=== PATIENT | female | born 1945 | race Caucasian/White ===

== ENCOUNTER 2018-12-17 18:39 | Emergency (ER) | payer MEDICARE, OTHER ==
[2018-12-17] MEDS ORDERED: Sodium Chloride 0.9% 1000 ML 1,000 ML IV STA (19:14)
--- NOTE | 2018-12-17 19:21 | ERPHSYRPT ---
- History of Present Illness Time Seen by Provider: 12/17/18 19:10 Source: patient Exam Limitations: no limitations Physician History: L knee replacement 3 weeks ago - doing PT as scheduled; home health nurse sees - PT c/o weakness - no energy - no appetite - forcing herself to eat and drink. Had bloodwork done here yesterday. Timing/Duration: day(s) (5) Severity: moderate Modifying Factors: Improves With: nothing Associated Symptoms: No nausea, No vomiting, No abdominal pain, No shortness of breath, No heartburn, No diaphoresis, No cough, No chills, No chest pain Allergies/Adverse Reactions: Penicillins Allergy (Verified 12/17/18 19:13) Sulfa (Sulfonamide Antibiotics) Allergy (Verified 12/17/18 19:13) Home Medications: Amlodipine Besylate 5 mg [Norvasc 5 mg] 5 mg PO DAILY 12/17/18 [History] Calcium Carbonate/Vitamin D3 [Calcium 600 + Vit D Tablet] 1 each PO DAILY [History] Estradiol 0.5 mg PO DAILY 12/17/18 [History] Irbesartan 300 mg PO DAILY 12/17/18 [History] Levothyroxine Sodium 150 Mcg [Synthroid 150 Mcg] 150 mcg PO DAILY 12/17/18 [History] Multivit-Min/Iron/Folic/Lutein [Centrum Silver Women Tablet] 1 each PO DAILY 12/28 [History] hydroCHLOROthiazide [Hydrochlorothiazide] 12.5 mg PO DAILY 12/17/18 [History] - Review of Systems Constitutional: Fatigue (weakness), Lethargy Eyes: No Symptoms Ears, Nose, & Throat: No Symptoms Respiratory: No Symptoms, No Cough, No Dyspnea, No Dyspnea on Exertion (BYERS), No Stridor, No Wheezing Cardiac: No Symptoms, No Chest Pain, No Edema, No Palpitations Abdominal/Gastrointestinal: No Symptoms, No Abdominal Pain, No Nausea, No Vomiting, No Diarrhea, No Constipation Genitourinary Symptoms: No Symptoms, No Dysuria, No Frequency Skin: No Symptoms (surgical wound site with no erythema, edema - healing scar) All Other Systems: Reviewed and Negative - Nursing Vital Signs Nursing Vital Signs: Initial Vital Signs Temperature 98.1 F 12/17/18 18:50 Pulse Rate 97 H 12/17/18 18:50 Respiratory Rate 16 12/17/18 18:50 Blood Pressure 123/72 12/17/18 18:50 O2 Sat by Pulse Oximetry 96 12/17/18 18:50 Pain Scale Pain Intensity 0 - Physical Exam General Appearance: no apparent distress Eye Exam: PERRL/EOMI Ears, Nose, Throat Exam: normal ENT inspection Neck Exam: normal inspection Respiratory Exam: normal breath sounds, lungs clear, airway intact, No respiratory distress, No diminished breath sounds Cardiovascular Exam: regular rate/rhythm, normal heart sounds, No edema, No pulse deficit Gastrointestinal/Abdomen Exam: soft, normal bowel sounds, No tenderness Extremity Exam: normal inspection Neurologic Exam: alert, oriented x 3, cooperative, normal mood/affect, sensation nml, No motor deficits, No sensory deficit SpO2 Interpretation: normal O2 Delivery: Room Air Ordered Tests: Medication Summary Discontinued Medications Generic Name Dose Route Start Last Admin Trade Name Freq PRN Reason Stop Dose Admin Sodium Chloride 1,000 mls @ 999 mls/hr 12/17/18 19:14 12/17/18 19:29 Sodium Chloride 0.9% 1000 Ml IV 12/17/18 20:14 999 mls/hr .Q1H1M STA Administration Sodium Chloride Confirm 12/17/18 19:27 Sodium Chloride 0.9% 1000 Ml Administered 12/17/18 19:28 Dose 1,000 mls @ ud .ROUTE .STK-MED ONE Lab/Rad Data: Laboratory Result Diagrams 12/17/18 19:30 12/17/18 19:30 Laboratory Results 12/17/18 12/17/18 12/17/18 Range/Units 20:22 19:41 19:30 WBC (4.0-10.5) K/mm3 RBC (4.1-5.4) M/mm3 Hgb (12.0-16.0) gm/dl Hct (35-47) % MCV (78-100) fl MCH (26-32) pg MCHC (32-36) g/dl RDW (11.5-14.0) % Plt Count (150-450) K/mm3 MPV (6-9.5) fl Gran % (36.0-66.0) % Eos # (Auto) (0-0.5) Absolute Lymphs (auto) (1.0-4.6) Absolute Monos (auto) (0.0-1.3) Lymphocytes % (24.0-44.0) % Monocytes % (0.0-12.0) % Eosinophils % (0.00-5.0) % Basophils % (0.0-0.4) % Absolute Granulocytes (1.4-6.9) Basophils # (0-0.4) D-Dimer 1936 H* (215-500) ng/mL Sodium 137 (137-145) mmol/L Potassium 4.2 (3.5-5.1) mmol/L Chloride 100 (98-107) mmol/L Carbon Dioxide 27 (22-30) mmol/L Anion Gap 14.0 (5-15) MEQ/L BUN 21 H (7-17) mg/dL Creatinine 0.66 (0.52-1.04) mg/dL Estimated GFR > 60.0 ML/MIN Glucose 103 (74-106) mg/dL Calcium 9.9 (8.4-10.2) mg/dL Total Bilirubin 0.50 (0.2-1.3) mg/dL AST 22 (14-36) U/L ALT 17 (0-35) U/L Alkaline Phosphatase 87 (38-126) U/L Serum Total Protein 7.3 (6.3-8.2) g/dL Albumin 4.3 (3.5-5.0) g/dL Urine Color YELLOW (YELLOW) Urine Appearance CLEAR (CLEAR) Urine pH 7.0 (5-6) Ur Specific [place] 1.006 (1.005-1.025) Urine Protein NEGATIVE (Negative) Urine Ketones NEGATIVE (NEGATIVE) Urine Blood NEGATIVE (0-5) Pierre/ul Urine Nitrite NEGATIVE (NEGATIVE) Urine Bilirubin NEGATIVE (NEGATIVE) Urine Urobilinogen NEGATIVE (0-1) mg/dL Ur Leukocyte Esterase NEGATIVE (NEGATIVE) Urine WBC (Auto) NONE (0-5) /HPF Urine RBC (Auto) NONE (0-2) /HPF U Hyaline Cast (Auto) 0-2 (0-2) /LPF U Epithel Cells (Auto) RARE (FEW) /HPF Urine Bacteria (Auto) RARE (NEGATIVE) /HPF Urine Culture Reflexed NO (NO) Urine Glucose NEGATIVE (NEGATIVE) mg/dL 12/17/18 Range/Units 19:30 WBC 5.7 (4.0-10.5) K/mm3 RBC 3.86 L (4.1-5.4) M/mm3 Hgb 12.7 (12.0-16.0) gm/dl Hct 38.2 (35-47) % MCV 99.0 (78-100) fl MCH 32.9 H (26-32) pg MCHC 33.2 (32-36) g/dl RDW 14.3 H (11.5-14.0) % Plt Count 294 (150-450) K/mm3 MPV 10.2 H (6-9.5) fl Gran % 67.9 H (36.0-66.0) % Eos # (Auto) 0.11 (0-0.5) Absolute Lymphs (auto) 0.92 L (1.0-4.6) Absolute Monos (auto) 0.77 (0.0-1.3) Lymphocytes % 16.2 L (24.0-44.0) % Monocytes % 13.6 H (0.0-12.0) % Eosinophils % 1.9 (0.00-5.0) % Basophils % 0.4 (0.0-0.4) % Absolute Granulocytes 3.85 (1.4-6.9) Basophils # 0.02 (0-0.4) D-Dimer (215-500) ng/mL Sodium (137-145) mmol/L Potassium (3.5-5.1) mmol/L Chloride (98-107) mmol/L Carbon Dioxide (22-30) mmol/L Anion Gap (5-15) MEQ/L BUN (7-17) mg/dL Creatinine (0.52-1.04) mg/dL Estimated GFR ML/MIN Glucose (74-106) mg/dL Calcium (8.4-10.2) mg/dL Total Bilirubin (0.2-1.3) mg/dL AST (14-36) U/L ALT (0-35) U/L Alkaline Phosphatase (38-126) U/L Serum Total Protein (6.3-8.2) g/dL Albumin (3.5-5.0) g/dL Urine Color (YELLOW) Urine Appearance (CLEAR) Urine pH (5-6) Ur Specific [place] (1.005-1.025) Urine Protein (Negative) Urine Ketones (NEGATIVE) Urine Blood (0-5) Pierre/ul Urine Nitrite (NEGATIVE) Urine Bilirubin (NEGATIVE) Urine Urobilinogen (0-1) mg/dL Ur Leukocyte Esterase (NEGATIVE) Urine WBC (Auto) (0-5) /HPF Urine RBC (Auto) (0-2) /HPF U Hyaline Cast (Auto) (0-2) /LPF U Epithel Cells (Auto) (FEW) /HPF Urine Bacteria (Auto) (NEGATIVE) /HPF Urine Culture Reflexed (NO) Urine Glucose (NEGATIVE) mg/dL - Departure Departure Disposition: Home Clinical Impression: Weakness Condition: Good Referrals: [facility]VISITING NURSING [LOCATION] - Instructions: Generalized Weakness (DC) Additional Instructions: Follow up with primary care as needed. Call surgeon's office and advise of ER visit for the weakness starting last Friday and progressing thru tonight. CT scan was done and verified no PE developing; blood work does not indicate any infectious process or any electrolyte concerns.
[2018-12-17] MEDS ORDERED: Sodium Chloride 0.9% 1000 ML 1,000 ML ONE (19:27)
[2018-12-17 19:33] LABS: BASOPHIL % 0.4 % (0.0-0.4); Basophil (Absolute #) 0.02 (0-0.4); Eosinophil % 1.9 % (0.00-5.0); Eosinophil (Absolute #) 0.11 (0-0.5); Granulocyte Absolute (ANC) 3.85 (1.4-6.9); Granulocytes % 67.9 % (36.0-66.0); Hematocrit 38.2 % (35-47); Hemoglobin 12.7 gm/dl (12.0-16.0); Lymphocyte (Absolute #) 0.92 (1.0-4.6); Lymphocytes % 16.2 % (24.0-44.0); Mean Corpuscular Hemoglobin 32.9 pg (26-32); Mean Corpuscular Hgb Concent. 33.2 g/dl (32-36); Mean Platelet Volume 10.2 fl (6-9.5); Monocyte (Absolute #) 0.77 (0.0-1.3); Monocytes % 13.6 % (0.0-12.0); Platelet Count 294 K/mm3 (150-450); Red Blood Count 3.86 M/mm3 (4.1-5.4); Red Cell Distribution Width 14.3 % (11.5-14.0); White Blood Count 5.7 K/mm3 (4.0-10.5)
[2018-12-17 19:44] LABS: ALBUMIN 4.3 g/dL (3.5-5.0); ALKALINE PHOSPHATASE 87 U/L (38-126); BLOOD UREA NITROGEN 21 mg/dL (7-17); CHLORIDE 100 mmol/L (98-107); Calcium 9.9 mg/dL (8.4-10.2); Carbon Dioxide 27 mmol/L (22-30); Creatinine 1 0.66 mg/dL (0.52-1.04); Glucose 103 mg/dL (74-106); Potassium 4.2 mmol/L (3.5-5.1); SGOT/AST 22 U/L (14-36); SGPT/ALT 17 U/L (0-35); SODIUM 137 mmol/L (137-145); Total Protein 7.3 g/dL (6.3-8.2)
[2018-12-17 20:31] LABS: Appearance CLEAR (CLEAR); Bacteria RARE /HPF (NEGATIVE); Bilirubin NEGATIVE (NEGATIVE); Blood NEGATIVE Ery/ul (0-5); Epithelial Cells RARE /HPF (FEW); Glucose NEGATIVE (NEGATIVE); Hyaline Casts 0-2 /LPF (0-2); Ketones NEGATIVE (NEGATIVE); Leukocyte Esterase NEGATIVE (NEGATIVE); Nitrite NEGATIVE (NEGATIVE); Protein,Urine Dip NEGATIVE (Negative); Specific Gravity 1.006 (1.005-1.025); Urobilinogen NEGATIVE mg/dL (0-1)
[2018-12-17 22:20] VITALS: BP 112/70; PULSE 90; O2SAT 96
--- NOTE | 2018-12-18 09:08 | XRAY ---
Indication: Weakness. Elevated d-dimer. Knee surgery November 24, 2018. Multiple contiguous axial images obtained through the chest using 80 cc Isovue 370 contrast and PE protocol. Comparison: None. There is satisfactory opacification of the pulmonary arteries to include the lobar and segmental branches. No filling defect or pulmonary embolus. Heart is not enlarged. Aorta is normal in course and caliber. A few small mediastinal and right hilar calcified nodes. No pathologic mediastinal/hilar lymphadenopathy. Lungs are inflated with right upper lobe calcified granuloma. Minimal right middle lobe, lingula, and bibasilar fibrosis/scarring. No infiltrate or effusion. Bony thorax intact with mild degenerative changes throughout the spine and mild dextroscoliosis centered at T7. Limited upper abdomen including adrenal glands unremarkable. Impression: 1. Negative pulmonary embolus. No acute cardiopulmonary abnormalities. 2. Evidence for old granulomatous disease. CT DI 13.33
== END 2018-12-17 22:25 | disposition home or self-care (01) ==
LOC: ED 18:39
DX: R53.1 Weakness (principal)
CPT/HCPCS: 36000; 36415; 71260; 80053; 81001; 85025; 85379; 96360; 99284

== ENCOUNTER 2018-12-22 13:55 | Observation (INO) | payer MEDICARE, OTHER ==
[2018-12-22] MEDS ORDERED: Sodium Chloride 0.9% 10 ML FLUSH Syringe IV PRN (14:45)
--- NOTE | 2018-12-22 15:37 | XRAY ---
Indication: Weakness. Hypothyroidism. Comparison: CT chest December 17, 2018. Portable chest again demonstrates a few calcified granulomas and left base fibrosis/scarring. No focal infiltrate, consolidation, or large effusion. Heart is not enlarged. Bony thorax intact again with mild degenerative changes and mild dextroscoliosis. Impression: Stable nonacute chest with chronic features.
[2018-12-22 16:00] LABS: BASOPHIL % 0.3 % (0.0-0.4); Basophil (Absolute #) 0.02 (0-0.4); Eosinophil % 1.8 % (0.00-5.0); Eosinophil (Absolute #) 0.12 (0-0.5); Granulocyte Absolute (ANC) 4.59 (1.4-6.9); Granulocytes % 68.9 % (36.0-66.0); Hematocrit 39.5 % (35-47); Lymphocyte (Absolute #) 1.09 (1.0-4.6); Lymphocytes % 16.4 % (24.0-44.0); Mean Corpuscular Hgb Concent. 32.9 g/dl (32-36); Mean Platelet Volume 10.7 fl (6-9.5); Monocyte (Absolute #) 0.84 (0.0-1.3); Monocytes % 12.6 % (0.0-12.0); Platelet Count 269 K/mm3 (150-450); Red Blood Count 3.99 M/mm3 (4.1-5.4); Red Cell Distribution Width 14.3 % (11.5-14.0); White Blood Count 6.7 K/mm3 (4.0-10.5)
[2018-12-22 16:01] LABS: Mean Corpuscular Hemoglobin 32.5 pg (26-32)
[2018-12-22 16:05] LABS: INR 0.97 (0.8-3.0)
[2018-12-22 16:21] LABS: ALBUMIN 4.3 g/dL (3.5-5.0); ALKALINE PHOSPHATASE 92 U/L (38-126); ANION GAP 13.7 MEQ/L (5-15); BLOOD UREA NITROGEN 20 mg/dL (7-17); CHLORIDE 99 mmol/L (98-107); Calcium 10.5 mg/dL (8.4-10.2); Carbon Dioxide 26 mmol/L (22-30); Glucose 89 mg/dL (74-106); MAGNESIUM 1.9 mg/dL (1.6-2.3); SGOT/AST 23 U/L (14-36); SGPT/ALT 19 U/L (0-35); SODIUM 135 mmol/L (137-145); Total Protein 7.2 g/dL (6.3-8.2)
[2018-12-22 16:22] LABS: TROPONIN < 0.012 ng/mL (0.000-0.034)
[2018-12-22 16:25] LABS: Appearance CLEAR (CLEAR); Bacteria FEW /HPF (NEGATIVE); Bilirubin NEGATIVE (NEGATIVE); Blood NEGATIVE Ery/ul (0-5); Epithelial Cells RARE /HPF (FEW); Glucose NEGATIVE (NEGATIVE); Ketones NEGATIVE (NEGATIVE); Leukocyte Esterase NEGATIVE (NEGATIVE); Mucus SLIGHT /HPF (NEGATIVE); Nitrite NEGATIVE (NEGATIVE); Protein,Urine Dip NEGATIVE (Negative); Urobilinogen NEGATIVE mg/dL (0-1)
--- NOTE | 2018-12-22 16:35 | XRAY ---
Indication: Hypothyroidism. Two-dimensional thyroid sonogram performed. Comparison: None No thyromegaly. Right lobe measures 2.5 x 1.3 x 0.8 cm and the left lobe measures 2.2 x 0.7 x 0.5 cm with normal color perfusion. Isthmus measures 1.7 mm. No focal solid/cystic mass. Impression: Negative thyroid sonogram.
[2018-12-22] MEDS: MOTRIN 600 MG PO PRN (17:36)
[2018-12-22] MEDS ORDERED: Toprol-Xl 25MG Tablets PO ONE (17:45)
--- NOTE | 2018-12-22 21:14 | PCM.HP ---
History of Present Illness - Chief Complaint Chief Complaint: tachy,weakness,hypothyroid,bruising History of Present Illness: is a 73 year old female pt of mine from [facility] with hypothyroidism and recent total knee arthroplasty who was directly admitted to the hospital for weakness and tachycardia. She came to see me yesterday in the office about 4 weeks post surgery, c/o 1 week of dizziness, weakness, and shakiness. She had some pre-surgery jitters but then was feeling fine for the first 3 weeks after surgery. When she started feeling dizzy and shaky she went to ER, where they did rule out a PE with a negative CTA of the chest. She denies CP, SOB, and palpitations. She has said she feels "not right" and described it as like being in a car wreck when there's too much adrenaline. Her surgeon was Dr. Givens at [facility]. Surgery was on 11/24/18. Her initial labs showed normal TSH and elevated free T4. Today she started feeling more shaky and decided she had to do something else, so she called my office and left a message that she thought maybe she needed to be admitted. I did admit her directly; on telemetry her HR is mostly in the 90s , occasionally in the 80s, but when she sat up to bedside her HR was almost 120. I gave her Toprol XL 25mg and she says she does feel better than in office yesterday and definitely better than earlier today. - Review of Systems Constitutional: Weakness Neurological: Dizziness, Other (shakiness) Psychological: Anxiety Endocrine: Other ("hot feet") All Other Systems: Reviewed and Negative Medications & Allergies Home Medications: Home Medication List Amlodipine Besylate 5 mg [Norvasc 5 mg] 5 mg PO DAILY 12/17/18 [History Confirmed 12/22/18] Calcium Carbonate/Vitamin D3 [Calcium 600 + Vit D Tablet] 1 each PO DAILY [History Confirmed 12/22/18] Estradiol 0.5 mg PO DAILY 12/17/18 [History Confirmed 12/22/18] Irbesartan 300 mg PO DAILY 12/17/18 [History Confirmed 12/22/18] Levothyroxine Sodium 150 Mcg [Synthroid 150 Mcg] 150 mcg PO DAILY 12/17/18 [History Confirmed 12/22/18] Multivit-Min/Iron/Folic/Lutein [Centrum Silver Women Tablet] 1 each PO DAILY 12/28 [History Confirmed 12/22/18] hydroCHLOROthiazide [Hydrochlorothiazide] 12.5 mg PO DAILY 12/17/18 [History Confirmed 12/22/18] Allergies/Adverse Reactions: Allergies Allergy/AdvReac Type Severity Reaction Status Date / Time Penicillins Allergy Verified 12/17/18 19:13 Sulfa (Sulfonamide Allergy Verified 12/17/18 19:13 Antibiotics) - Past Medical History Past Medical History: Yes Neurological History: No Pertinent History ENT History: Cataracts Cardiac History: Hypertension Respiratory History: No Pertinent History Endocrine Medical History: Hypothyroidism Musculoskelatal History: No Pertinent History GI Medical History: Hernia History: No Pertinent History Pyscho-Social History: No Pertinent History Reproductive Disorders: No Pertinent History - Female History Are you now?: No - Past Surgical History Past Surgical History: Yes Neuro Surgical History: No Pertinent History Cardiac History: No Pertinent History Respiratory Surgery: No Pertinent History GI Surgical History: Hernia Repair Genitourinary Surgical Hx: No Pertinent History Musculskeletal Surgical Hx: Joint Replacement Female Surgical History: Hysterectomy Other Surgical History: LEFT KNEE REPLACEMENT - Social History Smoking Status: Never smoker Exposure to second hand smoke: No Alcohol: None Drug Use: none - Physical Exam Vital Signs: Vital Signs - 24 hr Temp Pulse Resp BP Pulse Ox 12/22/18 19:46 98.2 F 91 H 17 135/64 93 L 12/22/18 19:18 95 12/22/18 16:10 98.2 F 92 H 20 124/59 96 12/22/18 14:45 96 12/22/18 14:31 98.0 F 82 20 126/63 97 12/22/18 14:30 98 F 82 20 126/63 97 General Appearance: no apparent distress, alert Neurologic Exam: oriented x 3, cooperative Eye Exam: eyes nml inspection Ears, Nose, Throat Exam: moist mucous membranes Neck Exam: normal inspection, non-tender, No lymphadenopathy Respiratory Exam: normal breath sounds, lungs clear, No crackles/rales, No rhonchi, No wheezing Cardiovascular Exam: regular rate/rhythm (HR 94), normal heart sounds, No murmur Gastrointestinal/Abdomen Exam: soft, normal bowel sounds, No tenderness, No distention, No mass, No guarding, No rebound Extremity Exam: other (no pretibial edema bilat) Skin Exam: normal color, warm, dry, No rash Results - Labs Lab/Micro Results: Lab Results-Last 24 Hours 12/22/18 12/22/18 12/22/18 Range/Units 14:46 14:46 14:46 WBC 6.7 (4.0-10.5) K/mm3 RBC 3.99 L (4.1-5.4) M/mm3 Hgb 13.0 (12.0-16.0) gm/dl Hct 39.5 (35-47) % MCV 99.0 (78-100) fl MCH 32.5 H (26-32) pg MCHC 32.9 (32-36) g/dl RDW 14.3 H (11.5-14.0) % Plt Count 269 (150-450) K/mm3 MPV 10.7 H (6-9.5) fl Gran % 68.9 H (36.0-66.0) % Eos # (Auto) 0.12 (0-0.5) Absolute Lymphs (auto) 1.09 (1.0-4.6) Absolute Monos (auto) 0.84 (0.0-1.3) Lymphocytes % 16.4 L (24.0-44.0) % Monocytes % 12.6 H (0.0-12.0) % Eosinophils % 1.8 (0.00-5.0) % Basophils % 0.3 (0.0-0.4) % Absolute Granulocytes 4.59 (1.4-6.9) Basophils # 0.02 (0-0.4) PT (9.95-12.35) SECONDS INR (0.8-3.0) Sodium 135 L (137-145) mmol/L Potassium 4.0 (3.5-5.1) mmol/L Chloride 99 (98-107) mmol/L Carbon Dioxide 26 (22-30) mmol/L Anion Gap 13.7 (5-15) MEQ/L BUN 20 H (7-17) mg/dL Creatinine 0.70 (0.52-1.04) mg/dL Estimated GFR > 60.0 ML/MIN Glucose 89 (74-106) mg/dL Lactic Acid 1.4 (0.4-2.0) Calcium 10.5 H (8.4-10.2) mg/dL Magnesium 1.9 (1.6-2.3) mg/dL Total Bilirubin 0.70 (0.2-1.3) mg/dL AST 23 (14-36) U/L ALT 19 (0-35) U/L Alkaline Phosphatase 92 (38-126) U/L Troponin I < 0.012 (0.000-0.034) ng/mL Serum Total Protein 7.2 (6.3-8.2) g/dL Albumin 4.3 (3.5-5.0) g/dL TSH 3rd Generation (0.47-4.68) mIU/L Urine Color (YELLOW) Urine Appearance (CLEAR) Urine pH (5-6) Ur Specific [place] (1.005-1.025) Urine Protein (Negative) Urine Ketones (NEGATIVE) Urine Blood (0-5) Pierre/ul Urine Nitrite (NEGATIVE) Urine Bilirubin (NEGATIVE) Urine Urobilinogen (0-1) mg/dL Ur Leukocyte Esterase (NEGATIVE) Urine WBC (Auto) (0-5) /HPF Urine RBC (Auto) (0-2) /HPF U Epithel Cells (Auto) (FEW) /HPF Urine Bacteria (Auto) (NEGATIVE) /HPF Urine Mucus (Auto) (NEGATIVE) /HPF Urine Culture Reflexed (NO) Urine Glucose (NEGATIVE) mg/dL 12/22/18 12/22/18 12/22/18 Range/Units 14:46 14:46 16:00 WBC (4.0-10.5) K/mm3 RBC (4.1-5.4) M/mm3 Hgb (12.0-16.0) gm/dl Hct (35-47) % MCV (78-100) fl MCH (26-32) pg MCHC (32-36) g/dl RDW (11.5-14.0) % Plt Count (150-450) K/mm3 MPV (6-9.5) fl Gran % (36.0-66.0) % Eos # (Auto) (0-0.5) Absolute Lymphs (auto) (1.0-4.6) Absolute Monos (auto) (0.0-1.3) Lymphocytes % (24.0-44.0) % Monocytes % (0.0-12.0) % Eosinophils % (0.00-5.0) % Basophils % (0.0-0.4) % Absolute Granulocytes (1.4-6.9) Basophils # (0-0.4) PT 11.0 (9.95-12.35) SECONDS INR 0.97 (0.8-3.0) Sodium (137-145) mmol/L Potassium (3.5-5.1) mmol/L Chloride (98-107) mmol/L Carbon Dioxide (22-30) mmol/L Anion Gap (5-15) MEQ/L BUN (7-17) mg/dL Creatinine (0.52-1.04) mg/dL Estimated GFR ML/MIN Glucose (74-106) mg/dL Lactic Acid (0.4-2.0) Calcium (8.4-10.2) mg/dL Magnesium (1.6-2.3) mg/dL Total Bilirubin (0.2-1.3) mg/dL AST (14-36) U/L ALT (0-35) U/L Alkaline Phosphatase (38-126) U/L Troponin I (0.000-0.034) ng/mL Serum Total Protein (6.3-8.2) g/dL Albumin (3.5-5.0) g/dL TSH 3rd Generation 2.920 (0.47-4.68) mIU/L Urine Color YELLOW (YELLOW) Urine Appearance CLEAR (CLEAR) Urine pH 7.0 (5-6) Ur Specific [place] 1.010 (1.005-1.025) Urine Protein NEGATIVE (Negative) Urine Ketones NEGATIVE (NEGATIVE) Urine Blood NEGATIVE (0-5) Pierre/ul Urine Nitrite NEGATIVE (NEGATIVE) Urine Bilirubin NEGATIVE (NEGATIVE) Urine Urobilinogen NEGATIVE (0-1) mg/dL Ur Leukocyte Esterase NEGATIVE (NEGATIVE) Urine WBC (Auto) NONE (0-5) /HPF Urine RBC (Auto) NONE (0-2) /HPF U Epithel Cells (Auto) RARE (FEW) /HPF Urine Bacteria (Auto) FEW (NEGATIVE) /HPF Urine Mucus (Auto) SLIGHT (NEGATIVE) /HPF Urine Culture Reflexed ORDERED SEPARATELY (NO) Urine Glucose NEGATIVE (NEGATIVE) mg/dL - Radiology Impressions Radiology Exams & Impressions: Radiology Procedures Category Date Time Status CHEST 2 VIEWS (PA AND LAT) Routine Exams 12/22/18 14:45 Completed THYROID [US] Routine Exams 12/22/18 14:45 Completed - Other Procedures and Tests Respiratory Therapy 12/22/18 14:45 Oxygen Nasal Cannula 2 lpm Assessment/Plan (1) Hyperthyroidism Current Visit: Yes Status: Acute Assessment & Plan: acute, on chronic hypothyroidism. She is feeling b karina after a small dose of toprol. Will start 25mg metoprolol tartrate BID tonight. Total T3 pending. Thyroid u/s pending. Thyroid antibodies pending. I am holding her synthroid for now. Code(s): E05.90 - THYROTOXICOSIS, UNSP WITHOUT THYROTOXIC CRISIS OR STORM (2) Hypothyroid Current Visit: Yes Status: Chronic Qualifiers: Hypothyroidism type: unspecified Qualified Code(s): E03.9 - Hypothyroidism , unspecified Code(s): E03.9 - HYPOTHYROIDISM, UNSPECIFIED (3) Dizziness Current Visit: Yes Status: Acute Assessment & Plan: better Code(s): R42 - DIZZINESS AND GIDDINESS (4) Tachycardia Current Visit: Yes Status: Acute Assessment & Plan: worse with any activity Code(s): R00.0 - TACHYCARDIA, UNSPECIFIED (5) Hypercalcemia Current Visit: Yes Status: Acute Code(s): E83.52 - HYPERCALCEMIA (6) Weakness Current Visit: No Status: Acute Code(s): R53.1 - WEAKNESS
[2018-12-22] MEDS: Lopressor 25MG Tab PO SCH (22:00)
[2018-12-22] MEDS ORDERED: Sodium Chloride 0.9% 10 ML FLUSH Syringe IV SCH (22:00)
[2018-12-23] MEDS ORDERED: Ativan 0.5 MG PO PRN (08:41)
--- NOTE | 2018-12-23 08:46 | PCM.NOTE ---
Date and Time: 12/23/18841 Subjective Assessment: Pt slept but poorly, waking every hour. She is feeling anxious and a little more shaky this morning. Feeling lightheaded. Still feeling better than when she was in the office 2d ago. - Review of Systems Constitutional: No Fever Abdominal/Gastrointestinal: No Vomiting Objective Exam General Appearance: no apparent distress, alert Neurologic Exam: cooperative, normal mood/affect Skin Exam: normal color, warm, dry, No rash Respiratory Exam: normal breath sounds, lungs clear, No crackles/rales, No rhonchi, No wheezing Cardiovascular Exam: regular rate/rhythm, normal heart sounds, No murmur Gastrointestinal/Abdomen Exam: soft, normal bowel sounds, No distention Extremity Exam: other (L knee with well healing wound, c/d/i, no erythema) OBJECTIVE DATA Vital Signs: Vital Signs - 24 hr Temp Pulse Resp BP Pulse Ox 12/23/18 07:14 94 L 12/23/18 03:10 98 F 71 18 104/59 98 12/23/18 03:09 98 F 71 18 104/59 98 12/23/18 00:00 98.1 F 70 20 94/51 93 L 12/22/18 19:46 98.2 F 91 H 17 135/64 93 L 12/22/18 19:18 95 12/22/18 16:10 98.2 F 92 H 20 124/59 96 12/22/18 14:45 96 12/22/18 14:31 98.0 F 82 20 126/63 97 12/22/18 14:30 98 F 82 20 126/63 97 Pain Assessment - Last Documented Pain Intensity 0 Pain Scale Used 0-10 Pain Scale Intake and Output: Intake & Output 12/20/18 12/21/18 12/22/18 12/23/18 11:59 11:59 11:59 11:59 Intake Total 600 Output Total 1400 Balance -800 Weight 68.5 kg Lab Results: Lab Results-Last 24 Hours 12/22/18 12/22/18 12/22/18 Range/Units 14:46 14:46 14:46 WBC 6.7 (4.0-10.5) K/mm3 RBC 3.99 L (4.1-5.4) M/mm3 Hgb 13.0 (12.0-16.0) gm/dl Hct 39.5 (35-47) % MCV 99.0 (78-100) fl MCH 32.5 H (26-32) pg MCHC 32.9 (32-36) g/dl RDW 14.3 H (11.5-14.0) % Plt Count 269 (150-450) K/mm3 MPV 10.7 H (6-9.5) fl Gran % 68.9 H (36.0-66.0) % Eos # (Auto) 0.12 (0-0.5) Absolute Lymphs (auto) 1.09 (1.0-4.6) Absolute Monos (auto) 0.84 (0.0-1.3) Lymphocytes % 16.4 L (24.0-44.0) % Monocytes % 12.6 H (0.0-12.0) % Eosinophils % 1.8 (0.00-5.0) % Basophils % 0.3 (0.0-0.4) % Absolute Granulocytes 4.59 (1.4-6.9) Basophils # 0.02 (0-0.4) PT (9.95-12.35) SECONDS INR (0.8-3.0) Sodium 135 L (137-145) mmol/L Potassium 4.0 (3.5-5.1) mmol/L Chloride 99 (98-107) mmol/L Carbon Dioxide 26 (22-30) mmol/L Anion Gap 13.7 (5-15) MEQ/L BUN 20 H (7-17) mg/dL Creatinine 0.70 (0.52-1.04) mg/dL Estimated GFR > 60.0 ML/MIN Glucose 89 (74-106) mg/dL Lactic Acid 1.4 (0.4-2.0) Calcium 10.5 H (8.4-10.2) mg/dL Magnesium 1.9 (1.6-2.3) mg/dL Total Bilirubin 0.70 (0.2-1.3) mg/dL AST 23 (14-36) U/L ALT 19 (0-35) U/L Alkaline Phosphatase 92 (38-126) U/L Troponin I < 0.012 (0.000-0.034) ng/mL Serum Total Protein 7.2 (6.3-8.2) g/dL Albumin 4.3 (3.5-5.0) g/dL TSH 3rd Generation (0.47-4.68) mIU/L Urine Color (YELLOW) Urine Appearance (CLEAR) Urine pH (5-6) Ur Specific [place] (1.005-1.025) Urine Protein (Negative) Urine Ketones (NEGATIVE) Urine Blood (0-5) Pierre/ul Urine Nitrite (NEGATIVE) Urine Bilirubin (NEGATIVE) Urine Urobilinogen (0-1) mg/dL Ur Leukocyte Esterase (NEGATIVE) Urine WBC (Auto) (0-5) /HPF Urine RBC (Auto) (0-2) /HPF U Epithel Cells (Auto) (FEW) /HPF Urine Bacteria (Auto) (NEGATIVE) /HPF Urine Mucus (Auto) (NEGATIVE) /HPF Urine Culture Reflexed (NO) Urine Glucose (NEGATIVE) mg/dL 12/22/18 12/22/18 12/22/18 Range/Units 14:46 14:46 16:00 WBC (4.0-10.5) K/mm3 RBC (4.1-5.4) M/mm3 Hgb (12.0-16.0) gm/dl Hct (35-47) % MCV (78-100) fl MCH (26-32) pg MCHC (32-36) g/dl RDW (11.5-14.0) % Plt Count (150-450) K/mm3 MPV (6-9.5) fl Gran % (36.0-66.0) % Eos # (Auto) (0-0.5) Absolute Lymphs (auto) (1.0-4.6) Absolute Monos (auto) (0.0-1.3) Lymphocytes % (24.0-44.0) % Monocytes % (0.0-12.0) % Eosinophils % (0.00-5.0) % Basophils % (0.0-0.4) % Absolute Granulocytes (1.4-6.9) Basophils # (0-0.4) PT 11.0 (9.95-12.35) SECONDS INR 0.97 (0.8-3.0) Sodium (137-145) mmol/L Potassium (3.5-5.1) mmol/L Chloride (98-107) mmol/L Carbon Dioxide (22-30) mmol/L Anion Gap (5-15) MEQ/L BUN (7-17) mg/dL Creatinine (0.52-1.04) mg/dL Estimated GFR ML/MIN Glucose (74-106) mg/dL Lactic Acid (0.4-2.0) Calcium (8.4-10.2) mg/dL Magnesium (1.6-2.3) mg/dL Total Bilirubin (0.2-1.3) mg/dL AST (14-36) U/L ALT (0-35) U/L Alkaline Phosphatase (38-126) U/L Troponin I (0.000-0.034) ng/mL Serum Total Protein (6.3-8.2) g/dL Albumin (3.5-5.0) g/dL TSH 3rd Generation 2.920 (0.47-4.68) mIU/L Urine Color YELLOW (YELLOW) Urine Appearance CLEAR (CLEAR) Urine pH 7.0 (5-6) Ur Specific [place] 1.010 (1.005-1.025) Urine Protein NEGATIVE (Negative) Urine Ketones NEGATIVE (NEGATIVE) Urine Blood NEGATIVE (0-5) Pierre/ul Urine Nitrite NEGATIVE (NEGATIVE) Urine Bilirubin NEGATIVE (NEGATIVE) Urine Urobilinogen NEGATIVE (0-1) mg/dL Ur Leukocyte Esterase NEGATIVE (NEGATIVE) Urine WBC (Auto) NONE (0-5) /HPF Urine RBC (Auto) NONE (0-2) /HPF U Epithel Cells (Auto) RARE (FEW) /HPF Urine Bacteria (Auto) FEW (NEGATIVE) /HPF Urine Mucus (Auto) SLIGHT (NEGATIVE) /HPF Urine Culture Reflexed ORDERED SEPARATELY (NO) Urine Glucose NEGATIVE (NEGATIVE) mg/dL Radiology Exams: Radiology Procedures Category Date Time Status CHEST 2 VIEWS (PA AND LAT) Routine Exams 12/22/18 14:45 Completed THYROID [US] Routine Exams 12/22/18 14:45 Completed Assessment/Plan (1) Hyperthyroidism Current Visit: Yes Status: Acute Assessment & Plan: Total T3 and TPO antibodies are send out labs, will be done in 3-5 days. I am resuming her synthroid at a lower dose. Code(s): E05.90 - THYROTOXICOSIS, UNSP WITHOUT THYROTOXIC CRISIS OR STORM (2) Hypothyroid Current Visit: Yes Status: Chronic Qualifiers: Hypothyroidism type: unspecified Qualified Code(s): E03.9 - Hypothyroidism , unspecified Code(s): E03.9 - HYPOTHYROIDISM, UNSPECIFIED (3) Dizziness Current Visit: Yes Status: Acute Assessment & Plan: some of this morning's dizziness may be due to the meds we started here - toprol - causing her bp to be 104 systolic. Will continue with toprol 25mg po BID (she did also get a dose of toprol XL 25 mg yesterday but I will not be continuing that). Code(s): R42 - DIZZINESS AND GIDDINESS (4) Tachycardia Current Visit: Yes Status: Resolved Code(s): R00.0 - TACHYCARDIA, UNSPECIFIED (5) Hypercalcemia Current Visit: Yes Status: Acute Code(s): E83.52 - HYPERCALCEMIA (6) Weakness Current Visit: No Status: Acute Code(s): R53.1 - WEAKNESS (7) Anxiety Current Visit: Yes Status: Acute Assessment & Plan: appears to be acute on chronic. Start buspar. Ativan prn, but I did discuss some side effects of ativan including increased risk of falls and addictive nature. If she feels better with meds may be able to d/c to home tomorrow to await other lab tests. Code(s): F41.9 - ANXIETY DISORDER, UNSPECIFIED
[2018-12-23] MEDS: Avapro 150 MG PO SCH (09:47)
[2018-12-23] MEDS: BUSPAR 5 MG PO SCH ×2 (09:47→21:11)
[2018-12-23] MEDS: SYNTHROID 125 MCG PO SCH (09:48)
[2018-12-23] MEDS: hydroDIURIL 25 MG PO SCH (09:48)
[2018-12-23] MEDS: ESTRACE 1 MG PO SCH (09:48)
[2018-12-23] MEDS: Lopressor 25MG Tab PO SCH ×2 (09:48→22:30)
[2018-12-23] MEDS: MOTRIN 600 MG PO PRN ×2 (09:55→17:14)
[2018-12-23] MEDS ORDERED: NORVASC 5 MG PO SCH (10:00)
[2018-12-23] MEDS ORDERED: NON-FORMULARY ITEM (Hydrochlorothiazide [Hydrochlorothiazide] 12.5 MG) PO SCH (10:00)
[2018-12-23] MEDS ORDERED: CLARITIN 10 MG PO SCH (22:00)
[2018-12-24 06:40] VITALS: BP 103/55; PULSE 77; O2SAT 98
--- NOTE | 2018-12-24 08:53 | PCM.DS ---
Discharge Summary Date of Admission: 12/22/18 14:11 Admitting Physician: RIAN CHESTER Primary Care Provider: RIAN CHESTER Allergies Allergies Penicillins Allergy (Verified 12/17/18 19:13) Sulfa (Sulfonamide Antibiotics) Allergy (Verified 12/17/18 19:13) Hospital Summary - Hospital Course Hospital Course: Pt is a 73 yo female pt, new to in, with hypothyroidism who was directly admitted feeling shaky and jittery with tachycardia. She had total knee replacement on the L 1 month ago, but c/o 1 week of symptoms. Her TSH was nl but free T4 was elevated. She was started on po metoprolol, buspar, and ativan prn and is feeling much better. She will be discharged to home on these meds ( will stop her amlodipine as bp have decreased). Decreased synthroid from 150mcg to 137 mcg/d. total T3 is pending. PTH is nl. PTO antibodies pending. F/u with me in 1 week - Vitals & Intake/Output Vital Signs: Vital Signs Temperature 98.1 F 12/24/18 06:40 Pulse Rate 77 12/24/18 06:40 Respiratory Rate 16 12/24/18 06:40 Blood Pressure 103/55 12/24/18 06:40 O2 Sat by Pulse Oximetry 98 12/24/18 06:40 Intake & Output: Intake & Output 12/21/18 12/22/18 12/23/18 12/24/18 11:59 11:59 11:59 11:59 Intake Total 1080 2380 Output Total 2050 1600 Balance -970 780 Weight 68.5 kg - Lab Result Diagrams: 12/22/18 14:46 12/22/18 14:46 Lab Results-Last 24 Hrs: Lab Results-Last 24 Hours 12/22/18 Range/Units 05:25 PTH Intact 32 (15-72) pg/mL Micro Results-Entire Visit: Microbiology 12/22/18 16:00 Urine Culture - Final Urine, Void <10K NORMAL SKIN JAKE PROBABLE SKIN CONTAMINANT - Radiology Exams Ordered Rad Exams-Entire Visit: Radiology Procedures Category Date Time Status CHEST 2 VIEWS (PA AND LAT) Routine Exams 12/22/18 14:45 Completed THYROID [US] Routine Exams 12/22/18 14:45 Completed - Procedures and Test Procedures and Tests throughout Hospitalization: Therapy Orders & Screens 12/22/18 14:45 EKG ROUTINE Comment: Diagnosis: tachy,weakness,hypothyroid,bruising Oxygen Nasal Cannula 2 lpm Comment: Diagnosis: tachy,weakness,hypothyroid,bruising 12/23/18 10:13 PT Eval & Treat ( Order) ROUTINE Reason for Eval:: L Knee replacement Diagnosis: tachy,weakness,hypothyroid,bruising Discharge Exam General Appearance: no apparent distress, alert Neurologic Exam: oriented x 3, cooperative Eye Exam: eyes nml inspection Respiratory Exam: normal breath sounds, lungs clear, No crackles/rales, No rhonchi, No wheezing Cardiovascular Exam: regular rate/rhythm, normal heart sounds, murmur Back Exam: normal inspection, No rash Extremity Exam: normal inspection, No pedal edema, No swelling Skin Exam: normal color, warm, dry, No rash Final Diagnosis/Problem List - Final Discharge Diagnosis/Problem (1) Hyperthyroidism Current Visit: Yes Status: Acute Assessment & Plan: started after her knee replacement. some labs still pending - she will f/u with me in 1 week about those. She will see endocrinology as well. Decreased synthroid at home and recheck in 2 mo. Code(s): E05.90 - THYROTOXICOSIS, UNSP WITHOUT THYROTOXIC CRISIS OR STORM (2) Hypothyroid Current Visit: Yes Status: Chronic Code(s): E03.9 - HYPOTHYROIDISM, UNSPECIFIED (3) Dizziness Current Visit: Yes Status: Resolved Code(s): R42 - DIZZINESS AND GIDDINESS (4) Tachycardia Current Visit: Yes Status: Resolved Assessment & Plan: on toprol 25mg po BID Code(s): R00.0 - TACHYCARDIA, UNSPECIFIED (5) Hypercalcemia Current Visit: Yes Status: Acute Assessment & Plan: PTH is nl Code(s): E83.52 - HYPERCALCEMIA (6) Weakness Current Visit: No Status: Resolved Code(s): R53.1 - WEAKNESS (7) Anxiety Current Visit: Yes Status: Chronic Assessment & Plan: improved. ativan prn, advised don't take it daily. Code(s): F41.9 - ANXIETY DISORDER, UNSPECIFIED - Discharge Disposition: Home, Self-Care Condition: Good Prescriptions: New Lorazepam 0.5 mg [Ativan 0.5 MG] 0.5 mg PO QHS PRN #30 tablet PRN Reason: Anxiety Buspirone HCl 5 mg [Buspar 5 mg] 5 mg PO BID #60 tablet Loratadine 10 mg [Claritin 10 mg] 10 mg PO HS tablet Levothyroxine Sodium 137 mcg PO DAILY #30 tablet Metoprolol Tartrate 25 mg [Lopressor 25MG Tab] 25 mg PO BID #60 tab Continue hydroCHLOROthiazide [Hydrochlorothiazide] 12.5 mg PO DAILY Multivit-Min/Iron/Folic/Lutein [Centrum Silver Women Tablet] 1 each PO DAILY Irbesartan 300 mg PO DAILY Estradiol 0.5 mg PO DAILY Calcium Carbonate/Vitamin D3 [Calcium 600 + Vit D Tablet] 1 each PO DAILY Discontinued Amlodipine Besylate 5 mg [Norvasc 5 mg] 5 mg PO DAILY Levothyroxine Sodium 150 Mcg [Synthroid 150 Mcg] 150 mcg PO DAILY Follow up with: RIAN CHESTER [Primary Care Provider] - 01/01/19 11:15 am
[2018-12-24] MEDS: Lopressor 25MG Tab PO SCH (08:58)
[2018-12-24] MEDS: BUSPAR 5 MG PO SCH (08:58)
[2018-12-24] MEDS: SYNTHROID 125 MCG PO SCH (08:58)
[2018-12-24] MEDS: hydroDIURIL 25 MG PO SCH (08:59)
[2018-12-24] MEDS: Avapro 150 MG PO SCH (09:01)
[2018-12-24] MEDS: ESTRACE 1 MG PO SCH (09:02)
== END 2018-12-24 10:55 | disposition home or self-care (01) ==
LOC: MED SURG 14:11
PROVIDERS: ADMIT Family Medicine; ATTEND Family Medicine
DX: E05.90 Thyrotoxicosis, unspecified without thyrotoxic crisis or storm (principal); R42 Dizziness and giddiness; R00.0 Tachycardia, unspecified; E03.9 Hypothyroidism, unspecified; E83.52 Hypercalcemia; R53.1 Weakness; F41.9 Anxiety disorder, unspecified; Z79.899 Other long term (current) drug therapy; Z96.652 Presence of left artificial knee joint
CPT/HCPCS: 36415; 71046; 76536; 80053; 81001; 83605; 83735; 83970; 84443; 84480; 84484; 85025; 85610; 86376; 87086; 93005; 93268; 94760; 97162; 97530; G0378; A9270-GY

== ENCOUNTER 2020-12-02 11:33 | Emergency (ER) | payer MEDICARE, OTHER ==
[2020-12-02] MEDS ORDERED: Ativan 2 MG/1 ML VIAL IV ONE (12:02)
[2020-12-02] MEDS ORDERED: Sodium Chloride 0.9% 1000 ML 1,000 ML IV STA (12:02)
[2020-12-02 12:39] LABS: Absolute Neutrophil Ct (ANC) 6.91 (1.4-6.9); BASOPHIL % 0.2 % (0.0-0.4); Basophil (Absolute #) 0.02 (0-0.4); Eosinophil % 0.4 % (0.00-5.0); Eosinophil (Absolute #) 0.03 (0-0.5); Hematocrit 42.5 % (35-47); Hemoglobin 13.8 gm/dl (12.0-16.0); Lymphocyte (Absolute #) 0.68 (1.0-4.6); Lymphocytes % 8.1 % (24.0-44.0); Mean Cell Volume 98.2 fl (78-100); Mean Corpuscular Hemoglobin 31.9 pg (26-32); Mean Corpuscular Hgb Concent. 32.5 g/dl (32-36); Mean Platelet Volume 11.2 fl (7.5-11.0); Monocytes % 9.5 % (0.0-12.0); Neutrophil % 81.8 % (36.0-66.0); Platelet Count 208 K/mm3 (150-450); Red Blood Count 4.33 M/mm3 (4.1-5.4); Red Cell Distribution Width 13.1 % (11.5-14.0); White Blood Count 8.4 K/mm3 (4.0-10.5)
[2020-12-02] MEDS ORDERED: Ativan 2 MG/1 ML VIAL ONE (12:43)
[2020-12-02] MEDS ORDERED: Sodium Chloride 0.9% 1000 ML 1,000 ML ONE (12:44)
[2020-12-02 12:52] LABS: INR 0.96 (0.8-3.0); PROTIME 11.3 SECONDS (9.4-12.5)
[2020-12-02 13:05] LABS: ALBUMIN 4.2 g/dL (3.5-5.0); ALKALINE PHOSPHATASE 84 U/L (38-126); AMYLASE 81 U/L (30-110); ANION GAP 15.4 MEQ/L (5-15); BLOOD UREA NITROGEN 23 mg/dL (7-17); CHLORIDE 102 mmol/L (98-107); CK-Creatinine Phosphokinase 28 U/L (30-135); Calcium 9.7 mg/dL (8.4-10.2); Carbon Dioxide 22 mmol/L (22-30); Creatinine 1 0.67 mg/dL (0.52-1.04); EST GLOMERULAR FILTRATION RATE > 60.0 ML/MIN; Glucose 114 mg/dL (74-106); LIPASE 215 U/L (23-300); NT PRO BNP 72.5 pg/mL (0-1800); Potassium 4.3 mmol/L (3.5-5.1); SGOT/AST 30 U/L (14-36); SGPT/ALT 19 U/L (0-35); SODIUM 135 mmol/L (137-145); Total Protein 7.1 g/dL (6.3-8.2)
[2020-12-02 13:41] LABS: Appearance CLEAR (CLEAR); Bilirubin NEGATIVE (NEGATIVE); Blood NEGATIVE Ery/ul (0-5); Glucose NEGATIVE (NEGATIVE); Ketones NEGATIVE (NEGATIVE); Leukocyte Esterase NEGATIVE (NEGATIVE); Nitrite NEGATIVE (NEGATIVE); Protein,Urine Dip NEGATIVE (Negative); Specific Gravity 1.009 (1.005-1.025); Urobilinogen NEGATIVE mg/dL (0-1); WBC 0-2 /HPF (0-5)
[2020-12-02 14:05] VITALS: O2SAT 98
[2020-12-02 15:19] VITALS: BP 141/67; PULSE 64
--- NOTE | 2020-12-02 15:21 | ERPHSYRPT ---
- History of Present Illness Time Seen by Provider: 12/02/20 11:50 Source: patient Patient Subjective Stated Complaint: c/o of nausea, unable to eat or drink, decreased appetite, weak, shaky and unable to sleep, pt reports having extreme anxiety Triage Nursing Assessment: Pt brought to the ER by her daughter, hypertensive, denies pain, lethargic, weak, pt was told by 1 doctor to increase her Synthroid and her poly packer and heat sealer had her stop it for 3 days and go from 125mcg to 112mcg, pt has been off of it for 2 days, skin n/w/d, pulses normal, doesn't appear to be in any distress Physician History: 75-year-old white female who says she is not been feeling well for several days. She has had multiple changes to her medicines in a relatively short period of time. She does have a lab result showing an elevated TSH and she says that her she was told to hold her Synthroid for a while. She also had changes to her blood pressure medicine. She is very anxious and recognizes that. She has been dizzy weak she thinks she may be a little dehydrated she has had nausea and decreased appetite. Timing/Duration: worse Severity: moderate Modifying Factors: Improves With: medication Associated Symptoms: nausea, loss of appetite, weakness, other (Dizzy) Allergies/Adverse Reactions: Penicillins Allergy (Verified 12/02/20 11:51) Sulfa (Sulfonamide Antibiotics) Allergy (Verified 12/02/20 11:51) Home Medications: Irbesartan 150 mg PO DAILY 12/17/18 [History] Multivit-Min/Iron/Folic/Lutein [Centrum Silver Women Tablet] 1 each PO DAILY 12/17/18 [History] Levothyroxine Sodium 112 mcg PO DAILY 12/02/20 [History] Hx Tetanus, Diphtheria Vaccination/Date Given: No Hx Influenza Vaccination/Date Given: Yes Hx Pneumococcal Vaccination/Date Given: Yes Travel Risk - International Travel Have you traveled outside of the country in past 3 weeks: No - Coronavirus Screening Are you exhibiting any of the following symptoms?: No Close contact with a COVID-19 positive Pt in past 14-21 Days: No - Vaccine Status Have you recieved a Covid-19 vaccination: Yes Nodulizer: [employer] - Review of Systems Constitutional: Fatigue, Weakness Eyes: No Symptoms Ears, Nose, & Throat: No Symptoms Respiratory: No Cough, No Dyspnea Cardiac: No Chest Pain, No Edema, No Syncope Abdominal/Gastrointestinal: Appetite Changes, No Abdominal Pain, No Nausea, No Vomiting, No Diarrhea Genitourinary Symptoms: No Dysuria Musculoskeletal: No Back Pain, No Neck Pain Skin: No Rash Neurological: Dizziness Psychological: Anxiety Endocrine: No Symptoms Hematologic/Lymphatic: No Symptoms Immunological/Allergic: No Symptoms All Other Systems: Reviewed and Negative - Past Medical History Pertinent Past Medical History: Yes Neurological History: No Pertinent History ENT History: Cataracts Cardiac History: Hypertension Respiratory History: No Pertinent History Endocrine Medical History: Hypothyroidism Musculoskeletal History: No Pertinent History GI Medical History: Hernia History: No Pertinent History Psycho-Social History: Anxiety Female Reproductive Disorders: No Pertinent History - Past Surgical History Past Surgical History: Yes Neuro Surgical History: No Pertinent History Cardiac: No Pertinent History Respiratory: No Pertinent History Gastrointestinal: Hernia Repair Genitourinary: No Pertinent History Musculoskeletal: Joint Replacement Female Surgical History: Hysterectomy Other Surgical History: LEFT KNEE REPLACEMENT - Social History Smoking Status: Never smoker Exposure to second hand smoke: No Drug Use: none Patient Lives Alone: Yes - Female History Hx Now: No - Nursing Vital Signs Nursing Vital Signs: Initial Vital Signs Temperature 97.5 F 12/02/20 11:41 Pulse Rate 85 12/02/20 11:41 Blood Pressure 142/89 12/02/20 11:41 O2 Sat by Pulse Oximetry 96 12/02/20 11:41 Pain Scale Pain Intensity 0 - Physical Exam General Appearance: mild distress, alert Eye Exam: PERRL/EOMI, eyes nml inspection Ears, Nose, Throat Exam: normal ENT inspection, TMs normal, pharynx normal, moist mucous membranes Neck Exam: normal inspection, non-tender, supple, full range of motion Respiratory Exam: normal breath sounds, lungs clear, No respiratory distress Cardiovascular Exam: regular rate/rhythm, normal heart sounds, normal peripheral pulses Gastrointestinal/Abdomen Exam: soft, normal bowel sounds, No tenderness, No mass Back Exam: normal inspection, normal range of motion, No CVA tenderness, No vertebral tenderness Extremity Exam: normal inspection, normal range of motion, pelvis stable Neurologic Exam: alert, oriented x 3, cooperative, normal mood/affect, nml cerebellar function, nml station & gait, sensation nml, No motor deficits Skin Exam: normal color, warm, dry, No rash Lymphatic Exam: No adenopathy SpO2: 98 - Course EKG Interpreted by Me: RATE (83), NORMAL AXIS, NORMAL INTERVALS, NORMAL QRS, Non-specific ST Changes - Radiology Exams Chest X-ray Interpretation: Interpreted by me, Negative Ordered Tests: Active Orders 24 hr Category Date Time Status EKG-ER Only STAT Care 12/02/20 12:02 Active IV Insertion STAT Care 12/02/20 12:02 Active CHEST 1 VIEW (PORTABLE) Stat Exams 12/02/20 12:03 Taken AMYLASE Stat Lab 12/02/20 12:22 Completed BLOOD CULTURE Stat Lab 12/02/20 12:30 Received CBC W DIFF Stat Lab 12/02/20 12:22 Completed CK-Creatinine Phosphokinase Stat Lab 12/02/20 12:22 Completed CMP Stat Lab 12/02/20 12:22 Completed LIPASE Stat Lab 12/02/20 12:22 Completed Lactic Acid Stat Lab 12/02/20 12:02 Completed MAGNESIUM Stat Lab 12/02/20 12:22 Completed NT PRO BNP Stat Lab 12/02/20 12:22 Completed PROTIME WITH INR Stat Lab 12/02/20 12:22 Completed TROPONIN Q3H Lab 12/02/20 12:22 Completed TROPONIN Q3H Lab 12/02/20 15:15 Ordered TROPONIN Q3H Lab 12/02/20 18:15 Ordered TROPONIN Q3H Lab 12/02/20 21:15 Ordered TROPONIN Q3H Lab 12/03/20 00:15 Ordered TSH [TSH, 3RD Generation] Stat Lab 12/02/20 12:22 Completed UA W/RFX UR CULTURE Stat Lab 12/02/20 12:48 Completed Medication Summary Discontinued Medications Generic Name Dose Route Start Last Admin Trade Name Freq PRN Reason Stop Dose Admin Sodium Chloride 1,000 mls @ 999 mls/hr 12/02/20 12:02 12/02/20 14:06 Sodium Chloride 0.9% 1000 Ml IV 12/02/20 13:02 Infused .Q1H1M STA Infusion Sodium Chloride Confirm 12/02/20 12:44 Sodium Chloride 0.9% 1000 Ml Administered 12/02/20 12:45 Dose 1,000 mls @ ud .ROUTE .STK-MED ONE Lorazepam 1 mg 12/02/20 12:02 12/02/20 12:45 Ativan 2 Mg/1 Ml Vial IV 12/02/20 12:03 1 mg STAT ONE Administration Lorazepam Confirm 12/02/20 12:43 Ativan 2 Mg/1 Ml Vial Administered 12/02/20 12:44 Dose 2 mg .ROUTE .STK-MED ONE Lab/Rad Data: Laboratory Result Diagrams 12/02/20 12:22 12/02/20 12:22 Laboratory Results 12/02/20 12/02/20 12/02/20 Range/Units 12:48 12:22 12:22 WBC (4.0-10.5) K/mm3 RBC (4.1-5.4) M/mm3 Hgb (12.0-16.0) gm/dl Hct (35-47) % MCV (78-100) fl MCH (26-32) pg MCHC (32-36) g/dl RDW (11.5-14.0) % Plt Count (150-450) K/mm3 MPV (7.5-11.0) fl Gran % (36.0-66.0) % Eos # (Auto) (0-0.5) Absolute Lymphs (auto) (1.0-4.6) Absolute Monos (auto) (0.0-1.3) Lymphocytes % (24.0-44.0) % Monocytes % (0.0-12.0) % Eosinophils % (0.00-5.0) % Basophils % (0.0-0.4) % Absolute Granulocytes (1.4-6.9) Basophils # (0-0.4) PT (9.4-12.5) SECONDS INR (0.8-3.0) Sodium (137-145) mmol/L Potassium (3.5-5.1) mmol/L Chloride (98-107) mmol/L Carbon Dioxide (22-30) mmol/L Anion Gap (5-15) MEQ/L BUN (7-17) mg/dL Creatinine (0.52-1.04) mg/dL Estimated GFR ML/MIN Glucose (74-106) mg/dL Lactic Acid (0.4-2.0) Calcium (8.4-10.2) mg/dL Magnesium (1.6-2.3) mg/dL Total Bilirubin (0.2-1.3) mg/dL AST (14-36) U/L ALT (0-35) U/L Alkaline Phosphatase (38-126) U/L Creatine Kinase (30-135) U/L Troponin I < 0.012 (0.000-0.034) ng/mL NT-Pro-B Natriuret Pep (0-1800) pg/mL Serum Total Protein (6.3-8.2) g/dL Albumin (3.5-5.0) g/dL Amylase (30-110) U/L Lipase (23-300) U/L TSH 3rd Generation 1.610 (0.47-4.68) mIU/L Urine Color YELLOW (YELLOW) Urine Appearance CLEAR (CLEAR) Urine pH 7.0 (5-6) Ur Specific [place] 1.009 (1.005-1.025) Urine Protein NEGATIVE (Negative) Urine Ketones NEGATIVE (NEGATIVE) Urine Blood NEGATIVE (0-5) Pierre/ul Urine Nitrite NEGATIVE (NEGATIVE) Urine Bilirubin NEGATIVE (NEGATIVE) Urine Urobilinogen NEGATIVE (0-1) mg/dL Ur Leukocyte Esterase NEGATIVE (NEGATIVE) Urine WBC (Auto) 0-2 (0-5) /HPF Urine RBC (Auto) NONE (0-2) /HPF U Epithel Cells (Auto) NONE (FEW) /HPF Urine Bacteria (Auto) NONE (NEGATIVE) /HPF Urine Culture Reflexed NO (NO) Urine Glucose NEGATIVE (NEGATIVE) mg/dL 12/02/20 12/02/20 12/02/20 Range/Units 12:22 12:22 12:22 WBC 8.4 (4.0-10.5) K/mm3 RBC 4.33 (4.1-5.4) M/mm3 Hgb 13.8 (12.0-16.0) gm/dl Hct 42.5 (35-47) % MCV 98.2 (78-100) fl MCH 31.9 (26-32) pg MCHC 32.5 (32-36) g/dl RDW 13.1 (11.5-14.0) % Plt Count 208 (150-450) K/mm3 MPV 11.2 H (7.5-11.0) fl Gran % 81.8 H (36.0-66.0) % Eos # (Auto) 0.03 (0-0.5) Absolute Lymphs (auto) 0.68 L (1.0-4.6) Absolute Monos (auto) 0.80 (0.0-1.3) Lymphocytes % 8.1 L (24.0-44.0) % Monocytes % 9.5 (0.0-12.0) % Eosinophils % 0.4 (0.00-5.0) % Basophils % 0.2 (0.0-0.4) % Absolute Granulocytes 6.91 H (1.4-6.9) Basophils # 0.02 (0-0.4) PT 11.3 (9.4-12.5) SECONDS INR 0.96 (0.8-3.0) Sodium 135 L (137-145) mmol/L Potassium 4.3 (3.5-5.1) mmol/L Chloride 102 (98-107) mmol/L Carbon Dioxide 22 (22-30) mmol/L Anion Gap 15.4 H (5-15) MEQ/L BUN 23 H (7-17) mg/dL Creatinine 0.67 (0.52-1.04) mg/dL Estimated GFR > 60.0 ML/MIN Glucose 114 H (74-106) mg/dL Lactic Acid (0.4-2.0) Calcium 9.7 (8.4-10.2) mg/dL Magnesium 2.0 (1.6-2.3) mg/dL Total Bilirubin 0.40 (0.2-1.3) mg/dL AST 30 (14-36) U/L ALT 19 (0-35) U/L Alkaline Phosphatase 84 (38-126) U/L Creatine Kinase 28 L (30-135) U/L Troponin I (0.000-0.034) ng/mL NT-Pro-B Natriuret Pep 72.5 (0-1800) pg/mL Serum Total Protein 7.1 (6.3-8.2) g/dL Albumin 4.2 (3.5-5.0) g/dL Amylase 81 (30-110) U/L Lipase 215 (23-300) U/L TSH 3rd Generation (0.47-4.68) mIU/L Urine Color (YELLOW) Urine Appearance (CLEAR) Urine pH (5-6) Ur Specific [place] (1.005-1.025) Urine Protein (Negative) Urine Ketones (NEGATIVE) Urine Blood (0-5) Pierre/ul Urine Nitrite (NEGATIVE) Urine Bilirubin (NEGATIVE) Urine Urobilinogen (0-1) mg/dL Ur Leukocyte Esterase (NEGATIVE) Urine WBC (Auto) (0-5) /HPF Urine RBC (Auto) (0-2) /HPF U Epithel Cells (Auto) (FEW) /HPF Urine Bacteria (Auto) (NEGATIVE) /HPF Urine Culture Reflexed (NO) Urine Glucose (NEGATIVE) mg/dL 12/02/20 Range/Units 12:02 WBC (4.0-10.5) K/mm3 RBC (4.1-5.4) M/mm3 Hgb (12.0-16.0) gm/dl Hct (35-47) % MCV (78-100) fl MCH (26-32) pg MCHC (32-36) g/dl RDW (11.5-14.0) % Plt Count (150-450) K/mm3 MPV (7.5-11.0) fl Gran % (36.0-66.0) % Eos # (Auto) (0-0.5) Absolute Lymphs (auto) (1.0-4.6) Absolute Monos (auto) (0.0-1.3) Lymphocytes % (24.0-44.0) % Monocytes % (0.0-12.0) % Eosinophils % (0.00-5.0) % Basophils % (0.0-0.4) % Absolute Granulocytes (1.4-6.9) Basophils # (0-0.4) PT (9.4-12.5) SECONDS INR (0.8-3.0) Sodium (137-145) mmol/L Potassium (3.5-5.1) mmol/L Chloride (98-107) mmol/L Carbon Dioxide (22-30) mmol/L Anion Gap (5-15) MEQ/L BUN (7-17) mg/dL Creatinine (0.52-1.04) mg/dL Estimated GFR ML/MIN Glucose (74-106) mg/dL Lactic Acid 1.2 (0.4-2.0) Calcium (8.4-10.2) mg/dL Magnesium (1.6-2.3) mg/dL Total Bilirubin (0.2-1.3) mg/dL AST (14-36) U/L ALT (0-35) U/L Alkaline Phosphatase (38-126) U/L Creatine Kinase (30-135) U/L Troponin I (0.000-0.034) ng/mL NT-Pro-B Natriuret Pep (0-1800) pg/mL Serum Total Protein (6.3-8.2) g/dL Albumin (3.5-5.0) g/dL Amylase (30-110) U/L Lipase (23-300) U/L TSH 3rd Generation (0.47-4.68) mIU/L Urine Color (YELLOW) Urine Appearance (CLEAR) Urine pH (5-6) Ur Specific Erving (1.005-1.025) Urine Protein (Negative) Urine Ketones (NEGATIVE) Urine Blood (0-5) Pierre/ul Urine Nitrite (NEGATIVE) Urine Bilirubin (NEGATIVE) Urine Urobilinogen (0-1) mg/dL Ur Leukocyte Esterase (NEGATIVE) Urine WBC (Auto) (0-5) /HPF Urine RBC (Auto) (0-2) /HPF U Epithel Cells (Auto) (FEW) /HPF Urine Bacteria (Auto) (NEGATIVE) /HPF Urine Culture Reflexed (NO) Urine Glucose (NEGATIVE) mg/dL - Progress Progress: improved - Departure Departure Disposition: Home Clinical Impression: Hypothyroidism, Anxiety Condition: Stable Critical Care Time: No Referrals: RIAN WILEY [Primary Care Provider] - Instructions: Hypothyroidism (Underactive Thyroid) (DC) Prescriptions: Lorazepam 1 mg [Ativan 1 MG] 1 mg PO Q8H PRN PRN #7 tablet PRN Reason: Anxiety
--- NOTE | 2020-12-02 19:22 | XRAY ---
Indication: Weakness and fatigue. Comparison: December 22, 2018. Portable chest unchanged again demonstrating minimal left base subsegmental atelectasis/scarring and a few tiny calcified granulomas. Remaining heart and lungs unremarkable. Bony thorax intact again with mild degenerative changes and scoliosis. No new/acute findings.
== END 2020-12-02 15:32 | disposition home or self-care (01) ==
LOC: ED 11:33
DX: E03.9 Hypothyroidism, unspecified (principal); F41.9 Anxiety disorder, unspecified
CPT/HCPCS: 36000; 36415; 71045; 80053; 81001; 82150; 82550; 83605; 83690; 83735; 83880; 84443; 84484; 85025; 85610; 87040; 93005; 96360; 96374; 99284; J2060

== ENCOUNTER 2021-01-05 09:50 | Observation (INO) | payer MEDICARE, OTHER ==
--- NOTE | 2021-01-05 09:56 | ERPHSYRPT ---
- History of Present Illness Time Seen by Provider: 01/05/21 09:56 Source: patient Exam Limitations: no limitations Physician History: This is a 75-year-old white female whose primary care physician is Dr. Kathy Jacob. She presents to emergency department with nausea but no vomiting symptoms, anxiety, 10 pound weight loss in the last 4 to 6 weeks, heart palpitations and insomnia. Patient states that she just overall does not feel well. Between Dr. Jacbo and her finish cleaner, there is been adjustment in her thyroid medication. The adjustment in her medication was performed less than 30 days ago. Patient does have history of chronic anxiety issues as well as hypothyroidism. Patient was seen here in this emergency department on 12/02/2020. She was diagnosed with hypothyroidism and anxiety. Patient denies chest pain. She denies shortness of breath. She has no abdominal pain. She has no dysuria or hematuria. She is not had a fever. She does not have a cough. She is concerned primarily with her thyroid levels. Patient states in the last 4 weeks she has lost 10 pounds. Timing/Duration: day(s) (Last several days) Severity: mild Associated Symptoms: nausea, No vomiting, No abdominal pain, No shortness of breath, No cough, No chest pain, No fever Allergies/Adverse Reactions: Penicillins Allergy (Verified 01/05/21 10:04) Sulfa (Sulfonamide Antibiotics) Allergy (Verified 01/05/21 10:04) Home Medications: Irbesartan 150 mg PO DAILY 12/17/18 [History] Multivit-Min/Iron/Folic/Lutein [Centrum Silver Women Tablet] 1 each PO DAILY 12/17/18 [History] Levothyroxine Sodium 112 mcg PO DAILY 12/02/20 [History] Bupropion HCl 150 mg Sr [Wellbutrin SR 150 MG] 1 ea DAILY 01/05/21 [History] Hx Tetanus, Diphtheria Vaccination/Date Given: No Hx Influenza Vaccination/Date Given: Yes Hx Pneumococcal Vaccination/Date Given: Yes Travel Risk - International Travel Have you traveled outside of the country in past 3 weeks: No - Coronavirus Screening Are you exhibiting any of the following symptoms?: No Close contact with a COVID-19 positive Pt in past 14-21 Days: No - Vaccine Status Have you recieved a Covid-19 vaccination: Yes [employer]: [employer] - Review of Systems Constitutional: Weakness Eyes: No Symptoms Ears, Nose, & Throat: No Symptoms Respiratory: No Symptoms Cardiac: No Symptoms Abdominal/Gastrointestinal: Abdominal Pain, No Nausea, No Vomiting, No Diarrhea Genitourinary Symptoms: No Symptoms Musculoskeletal: No Symptoms Skin: No Symptoms Neurological: No Symptoms Psychological: No Symptoms Endocrine: No Symptoms Hematologic/Lymphatic: No Symptoms Immunological/Allergic: No Symptoms All Other Systems: Reviewed and Negative - Past Medical History Pertinent Past Medical History: Yes Neurological History: No Pertinent History ENT History: Cataracts Cardiac History: Hypertension Respiratory History: No Pertinent History Endocrine Medical History: Hypothyroidism Musculoskeletal History: No Pertinent History GI Medical History: Hernia History: No Pertinent History Psycho-Social History: Anxiety Female Reproductive Disorders: No Pertinent History - Past Surgical History Past Surgical History: Yes Neuro Surgical History: No Pertinent History Cardiac: No Pertinent History Respiratory: No Pertinent History Gastrointestinal: Hernia Repair Genitourinary: No Pertinent History Musculoskeletal: Joint Replacement Female Surgical History: Hysterectomy Other Surgical History: LEFT KNEE REPLACEMENT - Social History Smoking Status: Never smoker Exposure to second hand smoke: No Drug Use: none Patient Lives Alone: Yes - Nursing Vital Signs Nursing Vital Signs: Initial Vital Signs Temperature 96.6 F 01/05/21 09:58 Pulse Rate 98 H 01/05/21 09:58 Respiratory Rate 14 01/05/21 09:58 Blood Pressure 134/98 01/05/21 09:58 O2 Sat by Pulse Oximetry 98 01/05/21 09:58 Pain Scale Pain Intensity 0 - Physical Exam General Appearance: no apparent distress, alert, anxiety Eye Exam: PERRL/EOMI, eyes nml inspection Ears, Nose, Throat Exam: normal ENT inspection, moist mucous membranes Neck Exam: normal inspection, non-tender, supple, full range of motion Respiratory Exam: normal breath sounds, lungs clear, airway intact, No chest tenderness, No respiratory distress Cardiovascular Exam: regular rate/rhythm, normal heart sounds, normal peripheral pulses Gastrointestinal/Abdomen Exam: soft, normal bowel sounds, No tenderness Pelvic Exam: not done Rectal Exam: not done Back Exam: normal inspection, normal range of motion, No CVA tenderness Extremity Exam: normal inspection, normal range of motion, No pelvis stable Neurologic Exam: alert, oriented x 3, cooperative, 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 There are no acute ischemic changes. When compared to EKG dated 12/02/2020, there is new borderline prolonged QT interval and new borderline T abnormalities in the anterior leads.) Ordered Tests: Active Orders 24 hr Category Date Time Status EKG-ER Only STAT Care 01/05/21 10:28 Active IV Insertion STAT Care 01/05/21 10:28 Active AMYLASE Stat Lab 01/05/21 10:15 Completed CBC W DIFF Stat Lab 01/05/21 10:15 Completed CMP Stat Lab 01/05/21 10:15 Completed LIPASE Stat Lab 01/05/21 10:15 Completed Lactic Acid Stat Lab 01/05/21 10:28 Completed Rains Screen Stat Lab 01/05/21 10:15 Completed T4 (Thyroxine) Stat Lab 01/05/21 10:15 Completed TROPONIN Q3H Lab 01/05/21 10:15 Completed TSH, 3RD Generation Stat Lab 01/05/21 10:15 Completed UA W/RFX UR CULTURE Stat Lab 01/05/21 10:15 Completed Medication Summary Discontinued Medications Generic Name Dose Route Start Last Admin Trade Name Freq PRN Reason Stop Dose Admin Sodium Chloride 1,000 mls @ 999 mls/hr 01/05/21 10:28 01/05/21 12:21 Sodium Chloride 0.9% 1000 Ml IV 01/05/21 11:28 Infused .Q1H1M STA Infusion Sodium Chloride Confirm 01/05/21 10:56 Sodium Chloride 0.9% 1000 Ml Administered 01/05/21 10:57 Dose 1,000 mls @ ud .ROUTE .STK-MED ONE Lorazepam 1 mg 01/05/21 13:23 Ativan 2 Mg/1 Ml Vial IV 01/05/21 13:24 STAT ONE Ondansetron HCl 4 mg 01/05/21 10:28 01/05/21 10:57 Zofran 4 Mg/2 Ml Vial IV 01/05/21 10:29 4 mg STAT ONE Administration Ondansetron HCl Confirm 01/05/21 10:56 Zofran 4 Mg/2 Ml Vial Administered 01/05/21 10:57 Dose 4 mg .ROUTE .STK-MED ONE Lab/Rad Data: Laboratory Result Diagrams 01/05/21 10:15 01/05/21 10:15 Laboratory Results 01/05/21 01/05/21 01/05/21 Range/Units 10:28 10:15 10:15 WBC (4.0-10.5) K/mm3 RBC (4.1-5.4) M/mm3 Hgb (12.0-16.0) gm/dl Hct (35-47) % MCV (78-100) fl MCH (26-32) pg MCHC (32-36) g/dl RDW (11.5-14.0) % Plt Count (150-450) K/mm3 MPV (7.5-11.0) fl Gran % (36.0-66.0) % Eos # (Auto) (0-0.5) Absolute Lymphs (auto) (1.0-4.6) Absolute Monos (auto) (0.0-1.3) Lymphocytes % (24.0-44.0) % Monocytes % (0.0-12.0) % Eosinophils % (0.00-5.0) % Basophils % (0.0-0.4) % Absolute Granulocytes (1.4-6.9) Basophils # (0-0.4) Sodium (137-145) mmol/L Potassium (3.5-5.1) mmol/L Chloride (98-107) mmol/L Carbon Dioxide (22-30) mmol/L Anion Gap (5-15) MEQ/L BUN (7-17) mg/dL Creatinine (0.52-1.04) mg/dL Estimated GFR ML/MIN Glucose (74-106) mg/dL Hemoglobin A1c 5.24 (4.5-6.0) % Lactic Acid 1.4 (0.4-2.0) Calcium (8.4-10.2) mg/dL Total Bilirubin (0.2-1.3) mg/dL AST (14-36) U/L ALT (0-35) U/L Alkaline Phosphatase (38-126) U/L Troponin I (0.000-0.034) ng/mL Serum Total Protein (6.3-8.2) g/dL Albumin (3.5-5.0) g/dL Amylase (30-110) U/L Lipase (23-300) U/L Thyroxine (T4) (5.53-10.96) ug/dL TSH 3rd Generation (0.47-4.68) mIU/L Urine Color (YELLOW) Urine Appearance (CLEAR) Urine pH (5-6) Ur Specific [place] (1.005-1.025) Urine Protein (Negative) Urine Ketones (NEGATIVE) Urine Blood (0-5) Pierre/ul Urine Nitrite (NEGATIVE) Urine Bilirubin (NEGATIVE) Urine Urobilinogen (0-1) mg/dL Ur Leukocyte Esterase (NEGATIVE) Urine WBC (Auto) (0-5) /HPF Urine RBC (Auto) (0-2) /HPF U Epithel Cells (Auto) (FEW) /HPF Urine Bacteria (Auto) (NEGATIVE) /HPF Urine Mucus (Auto) (NEGATIVE) /HPF Urine Culture Reflexed (NO) Urine Glucose (NEGATIVE) mg/dL Monoscreen NEGATIVE (Negative) 01/05/21 01/05/21 01/05/21 Range/Units 10:15 10:15 10:15 WBC (4.0-10.5) K/mm3 RBC (4.1-5.4) M/mm3 Hgb (12.0-16.0) gm/dl Hct (35-47) % MCV (78-100) fl MCH (26-32) pg MCHC (32-36) g/dl RDW (11.5-14.0) % Plt Count (150-450) K/mm3 MPV (7.5-11.0) fl Gran % (36.0-66.0) % Eos # (Auto) (0-0.5) Absolute Lymphs (auto) (1.0-4.6) Absolute Monos (auto) (0.0-1.3) Lymphocytes % (24.0-44.0) % Monocytes % (0.0-12.0) % Eosinophils % (0.00-5.0) % Basophils % (0.0-0.4) % Absolute Granulocytes (1.4-6.9) Basophils # (0-0.4) Sodium 138 (137-145) mmol/L Potassium 3.8 (3.5-5.1) mmol/L Chloride 103 (98-107) mmol/L Carbon Dioxide 25 (22-30) mmol/L Anion Gap 14.2 (5-15) MEQ/L BUN 11 (7-17) mg/dL Creatinine 0.67 (0.52-1.04) mg/dL Estimated GFR > 60.0 ML/MIN Glucose 113 H (74-106) mg/dL Hemoglobin A1c (4.5-6.0) % Lactic Acid (0.4-2.0) Calcium 9.8 (8.4-10.2) mg/dL Total Bilirubin 0.60 (0.2-1.3) mg/dL AST 26 (14-36) U/L ALT 17 (0-35) U/L Alkaline Phosphatase 87 (38-126) U/L Troponin I < 0.012 (0.000-0.034) ng/mL Serum Total Protein 7.4 (6.3-8.2) g/dL Albumin 4.3 (3.5-5.0) g/dL Amylase 71 (30-110) U/L Lipase 196 (23-300) U/L Thyroxine (T4) 15.7 H (5.53-10.96) ug/dL TSH 3rd Generation 1.640 (0.47-4.68) mIU/L Urine Color YELLOW (YELLOW) Urine Appearance CLEAR (CLEAR) Urine pH 8.0 (5-6) Ur Specific [place] 1.006 (1.005-1.025) Urine Protein NEGATIVE (Negative) Urine Ketones NEGATIVE (NEGATIVE) Urine Blood NEGATIVE (0-5) Pierre/ul Urine Nitrite NEGATIVE (NEGATIVE) Urine Bilirubin NEGATIVE (NEGATIVE) Urine Urobilinogen NEGATIVE (0-1) mg/dL Ur Leukocyte Esterase TRACE (NEGATIVE) Urine WBC (Auto) NONE (0-5) /HPF Urine RBC (Auto) NONE (0-2) /HPF U Epithel Cells (Auto) NONE (FEW) /HPF Urine Bacteria (Auto) NONE (NEGATIVE) /HPF Urine Mucus (Auto) SLIGHT (NEGATIVE) /HPF Urine Culture Reflexed NO (NO) Urine Glucose NEGATIVE (NEGATIVE) mg/dL Monoscreen (Negative) 01/05/21 Range/Units 10:15 WBC 5.2 (4.0-10.5) K/mm3 RBC 4.62 (4.1-5.4) M/mm3 Hgb 14.6 (12.0-16.0) gm/dl Hct 45.1 (35-47) % MCV 97.6 (78-100) fl MCH 31.6 (26-32) pg MCHC 32.4 (32-36) g/dl RDW 13.4 (11.5-14.0) % Plt Count 214 (150-450) K/mm3 MPV 11.7 H (7.5-11.0) fl Gran % 75.5 H (36.0-66.0) % Eos # (Auto) 0.05 (0-0.5) Absolute Lymphs (auto) 0.58 L (1.0-4.6) Absolute Monos (auto) 0.62 (0.0-1.3) Lymphocytes % 11.2 L (24.0-44.0) % Monocytes % 11.9 (0.0-12.0) % Eosinophils % 1.0 (0.00-5.0) % Basophils % 0.4 (0.0-0.4) % Absolute Granulocytes 3.92 (1.4-6.9) Basophils # 0.02 (0-0.4) Sodium (137-145) mmol/L Potassium (3.5-5.1) mmol/L Chloride (98-107) mmol/L Carbon Dioxide (22-30) mmol/L Anion Gap (5-15) MEQ/L BUN (7-17) mg/dL Creatinine (0.52-1.04) mg/dL Estimated GFR ML/MIN Glucose (74-106) mg/dL Hemoglobin A1c (4.5-6.0) % Lactic Acid (0.4-2.0) Calcium (8.4-10.2) mg/dL Total Bilirubin (0.2-1.3) mg/dL AST (14-36) U/L ALT (0-35) U/L Alkaline Phosphatase (38-126) U/L Troponin I (0.000-0.034) ng/mL Serum Total Protein (6.3-8.2) g/dL Albumin (3.5-5.0) g/dL Amylase (30-110) U/L Lipase (23-300) U/L Thyroxine (T4) (5.53-10.96) ug/dL TSH 3rd Generation (0.47-4.68) mIU/L Urine Color (YELLOW) Urine Appearance (CLEAR) Urine pH (5-6) Ur Specific [place] (1.005-1.025) Urine Protein (Negative) Urine Ketones (NEGATIVE) Urine Blood (0-5) Pierre/ul Urine Nitrite (NEGATIVE) Urine Bilirubin (NEGATIVE) Urine Urobilinogen (0-1) mg/dL Ur Leukocyte Esterase (NEGATIVE) Urine WBC (Auto) (0-5) /HPF Urine RBC (Auto) (0-2) /HPF U Epithel Cells (Auto) (FEW) /HPF Urine Bacteria (Auto) (NEGATIVE) /HPF Urine Mucus (Auto) (NEGATIVE) /HPF Urine Culture Reflexed (NO) Urine Glucose (NEGATIVE) mg/dL Monoscreen (Negative) - Progress Progress: unchanged, re-examined Progress Note: 01/05/21 12:44 Medical decision making: I spoke with Dr. Kathy Jacob, this patient's primary care physician. She feels that the patient should be transferred to an inpatient facility where her finish cleaner, Dr. Tillman is located. He feels that the patient should be treated from this point forward on an inpatient basis. They have been trying to manage her symptoms on an outpatient basis and her symptoms and blood work values do not appear to be improving. 01/05/21 13:56 I did contact [facility] hospitalist Dr. Gamez and reviewed the patient history, and work-up results with him. We have been waiting for Dr. Tillman to call back. It is suggested that we have [facility] call again for us which would be the fourth attempt at contacting him. At approximately 145 he called back and thinks that the patient's symptoms is more a function of anxiety and taking more medicine than she is supposed to be taking. He feels that we give her antianxiety medicine and low-dose beta-ishan which will help her heart rate and anxiety both. There is nothing more as an finish cleaner that he would add but he does state that to hold the thyroid medication for 2 days and then decrease the thyroid medicine to 88 mcg a day at discharge. He stated that they can do this as an outpatient or inpatient. I discussed this with the patient and she wants to be admitted. I did inform her that we will be monitoring her, providing her medicine to control her blood pressure, heart rate and anxiety. She is aware there may not be any testing done while she is in the emergency room. Discussed with .: Ajith, Other (Dr. Tillman) Counseled pt/family regarding: lab results, diagnosis, need for follow-up - Departure Departure Disposition: Observation Clinical Impression: Anxiety, Thyroid toxicity, exogenous Condition: Stable Critical Care Time: No Referrals: KATHY JACOB [Primary Care Provider] -
[2021-01-05] MEDS ORDERED: Zofran 4 MG/2 ML VIAL IV ONE (10:28)
[2021-01-05] MEDS ORDERED: Sodium Chloride 0.9% 1000 ML 1,000 ML IV STA (10:28)
[2021-01-05 10:38] LABS: Absolute Neutrophil Ct (ANC) 3.92 (1.4-6.9); BASOPHIL % 0.4 % (0.0-0.4); Basophil (Absolute #) 0.02 (0-0.4); Eosinophil (Absolute #) 0.05 (0-0.5); Hematocrit 45.1 % (35-47); Hemoglobin 14.6 gm/dl (12.0-16.0); Lymphocyte (Absolute #) 0.58 (1.0-4.6); Lymphocytes % 11.2 % (24.0-44.0); Mean Cell Volume 97.6 fl (78-100); Mean Corpuscular Hemoglobin 31.6 pg (26-32); Mean Corpuscular Hgb Concent. 32.4 g/dl (32-36); Mean Platelet Volume 11.7 fl (7.5-11.0); Monocyte (Absolute #) 0.62 (0.0-1.3); Monocytes % 11.9 % (0.0-12.0); Neutrophil % 75.5 % (36.0-66.0); Platelet Count 214 K/mm3 (150-450); Red Blood Count 4.62 M/mm3 (4.1-5.4); Red Cell Distribution Width 13.4 % (11.5-14.0); White Blood Count 5.2 K/mm3 (4.0-10.5)
[2021-01-05 10:42] LABS: Appearance CLEAR (CLEAR); Bilirubin NEGATIVE (NEGATIVE); Blood NEGATIVE Ery/ul (0-5); Glucose NEGATIVE (NEGATIVE); Ketones NEGATIVE (NEGATIVE); Leukocyte Esterase TRACE (NEGATIVE); Mucus SLIGHT /HPF (NEGATIVE); Nitrite NEGATIVE (NEGATIVE); Protein,Urine Dip NEGATIVE (Negative); Specific Gravity 1.006 (1.005-1.025); Urobilinogen NEGATIVE mg/dL (0-1)
[2021-01-05] MEDS ORDERED: Zofran 4 MG/2 ML VIAL ONE (10:56)
[2021-01-05] MEDS ORDERED: Sodium Chloride 0.9% 1000 ML 1,000 ML ONE (10:56)
[2021-01-05 11:19] LABS: ALBUMIN 4.3 g/dL (3.5-5.0); ALKALINE PHOSPHATASE 87 U/L (38-126); AMYLASE 71 U/L (30-110); ANION GAP 14.2 MEQ/L (5-15); BLOOD UREA NITROGEN 11 mg/dL (7-17); CHLORIDE 103 mmol/L (98-107); Calcium 9.8 mg/dL (8.4-10.2); Carbon Dioxide 25 mmol/L (22-30); Creatinine 1 0.67 mg/dL (0.52-1.04); EST GLOMERULAR FILTRATION RATE > 60.0 ML/MIN; Glucose 113 mg/dL (74-106); LIPASE 196 U/L (23-300); Potassium 3.8 mmol/L (3.5-5.1); SGOT/AST 26 U/L (14-36); SGPT/ALT 17 U/L (0-35); SODIUM 138 mmol/L (137-145); T4 (Thyroxine) 15.7 ug/dL (5.53-10.96); Total Protein 7.4 g/dL (6.3-8.2)
[2021-01-05] MEDS ORDERED: Ativan 2 MG/1 ML VIAL IV ONE (13:23)
[2021-01-05] MEDS ORDERED: Ativan 2 MG/1 ML VIAL ONE (13:57)
[2021-01-05] MEDS ORDERED: TYLENOL 325 MG PO PRN (16:09)
[2021-01-05] MEDS ORDERED: Sodium Chloride 0.9% 1000 ML 1,000 ML IV SCH (16:09)
[2021-01-05] MEDS: LOPRESSOR 5 MG/5 ML INJECTION IV SCH ×2 (17:17→23:21)
[2021-01-05] MEDS: Ativan 2 MG/1 ML VIAL IV PRN (21:31)
[2021-01-06 05:29] LABS: Absolute Neutrophil Ct (ANC) 3.02 (1.4-6.9); BASOPHIL % 0.4 % (0.0-0.4); Basophil (Absolute #) 0.02 (0-0.4); Eosinophil % 3.3 % (0.00-5.0); Eosinophil (Absolute #) 0.15 (0-0.5); Hematocrit 42.6 % (35-47); Hemoglobin 13.5 gm/dl (12.0-16.0); Lymphocyte (Absolute #) 0.71 (1.0-4.6); Lymphocytes % 15.5 % (24.0-44.0); Mean Corpuscular Hemoglobin 31.7 pg (26-32); Mean Corpuscular Hgb Concent. 31.7 g/dl (32-36); Mean Platelet Volume 11.4 fl (7.5-11.0); Monocyte (Absolute #) 0.67 (0.0-1.3); Monocytes % 14.7 % (0.0-12.0); Neutrophil % 66.1 % (36.0-66.0); Platelet Count 184 K/mm3 (150-450); Red Blood Count 4.26 M/mm3 (4.1-5.4); Red Cell Distribution Width 13.4 % (11.5-14.0); White Blood Count 4.6 K/mm3 (4.0-10.5)
[2021-01-06 05:38] LABS: ALBUMIN 3.7 g/dL (3.5-5.0); ALKALINE PHOSPHATASE 68 U/L (38-126); ANION GAP 12.2 MEQ/L (5-15); BLOOD UREA NITROGEN 12 mg/dL (7-17); CHLORIDE 105 mmol/L (98-107); Carbon Dioxide 25 mmol/L (22-30); Creatinine 1 0.68 mg/dL (0.52-1.04); EST GLOMERULAR FILTRATION RATE > 60.0 ML/MIN; Glucose 96 mg/dL (74-106); Potassium 4.1 mmol/L (3.5-5.1); SGOT/AST 25 U/L (14-36); SGPT/ALT 16 U/L (0-35); SODIUM 139 mmol/L (137-145); Total Protein 6.5 g/dL (6.3-8.2)
[2021-01-06] MEDS: LOPRESSOR 5 MG/5 ML INJECTION IV SCH ×3 (06:04→18:47)
[2021-01-06] MEDS: Ativan 2 MG/1 ML VIAL IV PRN ×2 (08:37→16:44)
[2021-01-06] MEDS: Wellbutrin SR 150 MG PO SCH (08:38)
[2021-01-06] MEDS: THERAGRAN MULTIVITAMIN PO SCH (08:38)
[2021-01-06] MEDS ORDERED: [UNRECOGNIZED DRUG - OTHER] PO SCH (10:00)
[2021-01-06] MEDS ORDERED: FOLIC PO SCH (10:00)
[2021-01-06] MEDS ORDERED: LUTEIN PO SCH (10:00)
[2021-01-06] MEDS ORDERED: MULTIVIT MIN PO SCH (10:00)
[2021-01-06] MEDS ORDERED: IRON PO SCH (10:00)
[2021-01-06] MEDS: Avapro 150 MG PO SCH (12:40)
[2021-01-07] MEDS: LOPRESSOR 5 MG/5 ML INJECTION IV SCH ×3 (00:35→12:59)
[2021-01-07] MEDS: Ativan 2 MG/1 ML VIAL IV PRN (03:42)
[2021-01-07] MEDS ORDERED: ANTIVERT 25 MG PO PRN (09:08)
[2021-01-07] MEDS: Avapro 150 MG PO SCH (10:29)
[2021-01-07] MEDS: Wellbutrin SR 150 MG PO SCH (10:30)
[2021-01-07] MEDS: THERAGRAN MULTIVITAMIN PO SCH (10:30)
[2021-01-07 11:56] VITALS: BP 134/65; PULSE 81; O2SAT 98
--- NOTE | 2021-01-07 15:51 | PCM.DCORD ---
- Discharge Disposition: Home, Self-Care Condition: Stable Prescriptions: New Meclizine HCl 25 mg [Antivert 25 mg] 12.5 mg PO BIDPRN PRN #20 tablet PRN Reason: Dizziness Levothyroxine Sodium 50 Mcg [Synthroid 50 Mcg] 50 mcg PO DAILY #30 tablet Fluticasone Propionate [Flonase Allergy Relief] 15.8 ml NS DAILY 30 Days #1 inh Continue Multivit-Min/Iron/Folic/Lutein [Centrum Silver Women Tablet] 1 each PO DAILY Irbesartan 75 mg PO DAILY Bupropion HCl 150 mg Sr [Wellbutrin SR 150 MG] 150 mg DAILY Lorazepam 1 mg [Ativan 1 MG] 0.5 mg PO HS PRN PRN Reason: Anxiety Discontinued Levothyroxine Sodium 112 mcg PO DAILY Additional Instructions: Referral to Dr Donaldo Brito, Cardiac Nurse Specialist, will be made by Dr Ziegler's nurse and she will call you with this information. Dr Brito's office number is [phone] . Follow up with: RIAN WILEY [Primary Care Provider] -
--- NOTE | 2021-01-07 16:04 | PCM.SSS ---
History of Present Illness - Chief Complaint Chief Complaint: Elevated [id number] thyroid replacement History of Present Illness: is a 75 year old female. Medications & Allergies Home Medications: Home Medication List Irbesartan 75 mg PO DAILY 12/17/18 [History Confirmed 01/05/21] Multivit-Min/Iron/Folic/Lutein [Centrum Silver Women Tablet] 1 each PO DAILY 12/17/18 [History Confirmed 01/05/21] Bupropion HCl 150 mg Sr [Wellbutrin SR 150 MG] 150 mg DAILY 01/05/21 [History Confirmed 01/05/21] Lorazepam 1 mg [Ativan 1 MG] 0.5 mg PO HS PRN 01/05/21 [History Confirmed 01/05/21] Fluticasone Propionate [Flonase Allergy Relief] 15.8 ml NS DAILY 30 Days #1 inh 01/07/21 [Rx] Levothyroxine Sodium 50 Mcg [Synthroid 50 Mcg] 50 mcg PO DAILY #30 tablet 01/07/21 [Rx] Meclizine HCl 25 mg [Antivert 25 mg] 12.5 mg PO BIDPRN PRN #20 tablet 01/07/21 [Rx] Allergies/Adverse Reactions: Allergies Allergy/AdvReac Type Severity Reaction Status Date / Time Penicillins Allergy Verified 01/05/21 10:04 Sulfa (Sulfonamide Allergy Verified 01/05/21 10:04 Antibiotics) - Past Medical History Past Medical History: Yes Neurological History: No Pertinent History ENT History: Cataracts Cardiac History: Hypertension Respiratory History: No Pertinent History Endocrine Medical History: Hyperthyroidism, Hypothyroidism Musculoskelatal History: No Pertinent History GI Medical History: Hernia History: No Pertinent History Pyscho-Social History: Anxiety Reproductive Disorders: No Pertinent History - Female History Hx Last Menstrual Period: post Are you now?: No - Past Surgical History Past Surgical History: Yes Neuro Surgical History: No Pertinent History Cardiac History: No Pertinent History Respiratory Surgery: No Pertinent History GI Surgical History: Hernia Repair Genitourinary Surgical Hx: No Pertinent History Musculskeletal Surgical Hx: Joint Replacement Female Surgical History: Hysterectomy Other Surgical History: LEFT KNEE REPLACEMENT - Social History Smoking Status: Never smoker Exposure to second hand smoke: No Alcohol: None Drug Use: none - Physical Exam Vital Signs: Vital Signs - 24 hr Temp Pulse Resp BP BP Pulse Ox 01/07/21 11:55 98.2 F 81 14 134/65 98 01/07/21 08:00 97.6 F 80 18 147/70 97 01/07/21 03:56 98.1 F 96 H 18 122/58 96 01/06/21 23:32 97.7 F 86 16 115/59 97 01/06/21 20:05 97.8 F 88 18 119/57 97 01/06/21 16:44 152/70 Hospital Summary - Vitals & Intake/Output Vital Signs: Vital Signs Temperature 98.2 F 01/07/21 11:55 Pulse Rate 81 01/07/21 11:55 Respiratory Rate 14 01/07/21 11:55 Blood Pressure 134/65 01/07/21 11:55 O2 Sat by Pulse Oximetry 98 01/07/21 11:55 Intake & Output: Intake & Output 01/05/21 01/06/21 01/07/21 01/08/21 11:59 11:59 11:59 11:59 Intake Total 1385 2032 120 Balance 1385 2032 120 Weight 69 kg 70.6 kg 70.2 kg - Lab Result Diagrams: 01/06/21 05:09 01/06/21 05:09 - Procedures and Test Procedures and Tests throughout Hospitalization: Therapy Orders & Screens 01/05/21 16:09 EKG REPEAT IN AM Comment: - Discharge Disposition: Home, Self-Care Condition: Stable Prescriptions: New Meclizine HCl 25 mg [Antivert 25 mg] 12.5 mg PO BIDPRN PRN #20 tablet PRN Reason: Dizziness Levothyroxine Sodium 50 Mcg [Synthroid 50 Mcg] 50 mcg PO DAILY #30 tablet Fluticasone Propionate [Flonase Allergy Relief] 15.8 ml NS DAILY 30 Days #1 inh Continue Multivit-Min/Iron/Folic/Lutein [Centrum Silver Women Tablet] 1 each PO DAILY Irbesartan 75 mg PO DAILY Bupropion HCl 150 mg Sr [Wellbutrin SR 150 MG] 150 mg DAILY Lorazepam 1 mg [Ativan 1 MG] 0.5 mg PO HS PRN PRN Reason: Anxiety Discontinued Levothyroxine Sodium 112 mcg PO DAILY Additional Instructions: Referral to Dr Sherwin Brito, [employer], will be made by Dr Ziegler's nurse and she will call you with this information. Dr Brito's office number is [phone] . Follow up with: RIAN WILEY [Primary Care Provider] - SHERWIN BRITO MD [NON-STAFF PHY W/O PRIVILEGES] -
== END 2021-01-07 16:32 | disposition home or self-care (01) ==
LOC: ED 09:50 → MED SURG 16:05
PROVIDERS: ADMIT Family Medicine; ATTEND Family Medicine
DX: R94.6 Abnormal results of thyroid function studies (principal); R11.0 Nausea; E03.9 Hypothyroidism, unspecified; Z79.899 Other long term (current) drug therapy; E87.1 Hypo-osmolality and hyponatremia; R73.9 Hyperglycemia, unspecified; Z20.822 Contact with and (suspected) exposure to COVID-19; F41.9 Anxiety disorder, unspecified
CPT/HCPCS: 36000; 36415; 80053; 81001; 82150; 82947; 83036; 83605; 83690; 84436; 84443; 84484; 85025; 86308; 93005; 93268; 94760; 96360; 96374; 96376; 99285; G0378; U0003; J2060; J2405; A9270-GY

== ENCOUNTER 2022-01-12 17:31 | Emergency (ER) | payer MEDICARE, OTHER ==
--- NOTE | 2022-01-12 17:33 | ERPHSYRPT ---
- History of Present Illness Time Seen by Provider: 01/12/22 17:33 Source: patient Exam Limitations: no limitations Physician History: This is 76-year-old female who has classic urinary tract symptoms for her. She has had dysuria. She had treatment for urinary tract infection in early December which included Levaquin. Patient did not think this worked as well as her having Cipro to treat a urinary tract infection within the last year. She has no abdominal pain. She has no nausea vomiting or diarrhea. She has no chest pain. She has no shortness of breath. Patient has no back pain or flank pain. Activites at Onset: none Quality: burning Onset Location: unknown Pain Radiation: none Severity of Pain-Max: mild Severity of Pain-Current: mild Prior abdominal problems: none Sexual intercourse history: non-contributory Modifying Factors: Improves With: nothing Allergies/Adverse Reactions: Penicillins Allergy (Verified 01/12/22 18:02) Sulfa (Sulfonamide Antibiotics) Allergy (Verified 01/12/22 18:02) Home Medications: Irbesartan 75 mg PO DAILY 12/17/18 [History] Multivit-Min/Iron/Folic/Lutein [Centrum Silver Women Tablet] 1 each PO DAILY 12/17/18 [History] Lorazepam 1 mg [Ativan 1 MG] 0.5 mg PO HS PRN 01/05/21 [History] Levothyroxine Sodium 50 Mcg [Synthroid 50 Mcg] 75 mcg PO DAILY 01/12/22 [History] Hx Tetanus, Diphtheria Vaccination/Date Given: No Hx Influenza Vaccination/Date Given: Yes Hx Pneumococcal Vaccination/Date Given: Yes Travel Risk - International Travel Have you traveled outside of the country in past 3 weeks: No - Coronavirus Screening Are you exhibiting any of the following symptoms?: No Close contact with a COVID-19 positive Pt in past 14-21 Days: No - Vaccine Status Have you recieved a Covid-19 vaccination: Yes 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 Dates if Unknown: ? - Review of Systems Constitutional: No Symptoms Eyes: No Symptoms Ears, Nose, & Throat: No Symptoms Respiratory: No Symptoms Cardiac: No Symptoms Abdominal/Gastrointestinal: No Symptoms Genitourinary Symptoms: Dysuria Musculoskeletal: No Symptoms Skin: No Symptoms Neurological: No Symptoms Psychological: No Symptoms Endocrine: No Symptoms Hematologic/Lymphatic: No Symptoms Immunological/Allergic: No Symptoms All Other Systems: Reviewed and Negative - Past Medical History Pertinent Past Medical History: Yes Neurological History: No Pertinent History ENT History: Cataracts Cardiac History: No Pertinent History Respiratory History: No Pertinent History Endocrine Medical History: Other Musculoskeletal History: Osteoarthritis GI Medical History: Hernia History: No Pertinent History Psycho-Social History: Anxiety Female Reproductive Disorders: No Pertinent History Other Medical History: [place] FOR 30-40 YEARS, TAKES MECLIZINE. THYROID PROBLEMS, SEES DR. DOHERTY IN [place], [place]. SHE RETURNS TO HIM IN OCTOBER. ANXIETY. - Past Surgical History Past Surgical History: Yes Neuro Surgical History: No Pertinent History Cardiac: No Pertinent History Respiratory: No Pertinent History Gastrointestinal: Hernia Repair Genitourinary: No Pertinent History Musculoskeletal: Joint Replacement Female Surgical History: Hysterectomy Other Surgical History: LEFT KNEE REPLACEMENT - Social History Smoking Status: Never smoker Exposure to second hand smoke: No Drug Use: none Patient Lives Alone: Yes - Nursing Vital Signs Nursing Vital Signs: Initial Vital Signs Temperature 97.5 F 01/12/22 17:54 Pulse Rate 105 H 01/12/22 17:54 Respiratory Rate 18 01/12/22 17:54 Blood Pressure 170/88 01/12/22 17:54 O2 Sat by Pulse Oximetry 95 01/12/22 17:54 Pain Scale Pain Intensity 7 - Physical Exam General Appearance: no apparent distress, alert, anxiety, thin Eye Exam: PERRL/EOMI, eyes nml inspection Ears, Nose, Throat Exam: normal ENT inspection, moist mucous membranes Neck Exam: normal inspection, non-tender, supple, full range of motion Respiratory Exam: normal breath sounds, lungs clear, airway intact, No chest tenderness, No respiratory distress Cardiovascular Exam: regular rate/rhythm, normal heart sounds, normal peripheral pulses Gastrointestinal/Abdomen Exam: No tenderness Pelvic Exam: not done Rectal Exam: not done Back Exam: normal inspection, normal range of motion, No CVA tenderness, No vertebral tenderness Extremity Exam: normal inspection, normal range of motion, pelvis stable Neurologic Exam: alert, oriented x 3, cooperative, electrophysiology nurse practitioner II-XII nml as tested, normal mood/affect, nml cerebellar function, nml station & gait, sensation nml Skin Exam: normal color, warm, dry Lymphatic Exam: No adenopathy SpO2 Interpretation: normal O2 Delivery: Room Air - Course Nursing assessment & vital signs reviewed: Yes Ordered Tests: Active Orders 24 hr Category Date Time Status UA W/RFX CULTURE Stat Lab 01/12/22 17:53 Completed Medication Summary Discontinued Medications Generic Name Dose Route Start Last Admin Trade Name Екатерина PRN Reason Stop Dose Admin Ciprofloxacin 500 mg 01/12/22 18:59 01/12/22 19:01 Ciprofloxacin 500 Mg Tablet PO 01/12/22 19:00 500 mg ONCE STA Administration Ciprofloxacin Confirm 01/12/22 19:01 Ciprofloxacin 500 Mg Tablet Administered 01/12/22 19:02 Dose 500 mg .ROUTE .STK-MED ONE Phenazopyridine HCl 200 mg 01/12/22 18:57 01/12/22 19:01 Phenazopyridine Hcl 200 Mg Tablet PO 01/12/22 18:58 200 mg STAT ONE Administration Phenazopyridine HCl Confirm 01/12/22 19:01 Phenazopyridine Hcl 200 Mg Tablet Administered 01/12/22 19:02 Dose 200 mg .ROUTE .STK-MED ONE Lab/Rad Data: Laboratory Results 01/12/22 Range/Units 17:53 Urinalys Dipstick Clnc MAIN LAB Urine Color YELLOW (YELLOW) Urine Appearance CLEAR (CLEAR) Urine pH 6.5 (5-6) Ur Specific [place] 1.015 (1.005-1.025) POC Urine Protein Conf NEGATIVE (Negative) Urine Ketones NEGATIVE (NEGATIVE) Urine Nitrite NEGATIVE (NEGATIVE) Urine Bilirubin NEGATIVE (NEGATIVE) Urine Urobilinogen 0.2 (0-1) mg/dL Urine Leukocytes TRACE (NEGATIVE) Urine WBC (Auto) 0-2 (0-5) /HPF Urine RBC (Auto) 0-2 (0-2) /HPF U Epithel Cells (Auto) RARE (FEW) /HPF Urine Bacteria (Auto) NONE SEEN (NEGATIVE) /HPF Urine RBC NEGATIVE (0-5) Pierre/ul Ur Culture Indicated? NO Urine Glucose NEGATIVE (NEGATIVE) mg/dL - Progress Progress: unchanged Air Movement: good Progress Note: 01/12/22 19:12 Patient clinically has a urinary tract infection. She does have trace leukocyte esterase in her urine. She also has diagnosis of dysuria. We will place her on Cipro and Pyridium. 01/12/22 19:12 Antibiotics given: Yes Counseled pt/family regarding: lab results, diagnosis, need for follow-up - Departure Departure Disposition: Home Clinical Impression: Dysuria, UTI (urinary tract infection) Condition: Stable Critical Care Time: No Referrals: RIAN DEE [Primary Care Provider] - Follow up/PCP as directed Additional Instructions: Drink plenty fluids. Take your medication as prescribed. Return the emergency department symptoms worsen. Prescriptions: Ciprofloxacin [Cipro 500 MG] 500 mg PO BID #14 tablet Phenazopyridine HCl 200 mg [Pyridium 200 mg] 200 mg PO TID #6 tablet
[2022-01-12 17:58] VITALS: BP 170/88; PULSE 105; O2SAT 95
[2022-01-12 18:16] LABS: Appearance CLEAR (CLEAR); Bilirubin NEGATIVE (NEGATIVE); Epithelial Cells RARE /HPF (FEW); Glucose NEGATIVE (NEGATIVE); Ketones NEGATIVE (NEGATIVE); Ph 6.5 (5-6); Protein,Urine Dip NEGATIVE (Negative); RBC 0-2 /HPF (0-2); RBC NEGATIVE Ery/ul (0-5); Specific Gravity 1.015 (1.005-1.025); WBC 0-2 /HPF (0-5)
[2022-01-12 18:17] LABS: Dipstick done @ ? MAIN LAB; Nitrite NEGATIVE (NEGATIVE); Urobilinogen 0.2 mg/dL (0-1)
[2022-01-12 18:18] LABS: Bacteria NONE SEEN /HPF (NEGATIVE); Urine Cultured Indicated? NO
[2022-01-12] MEDS ORDERED: PYRIDIUM 200 MG PO ONE (18:57)
[2022-01-12] MEDS ORDERED: Cipro 500 MG PO STA (18:59)
[2022-01-12] MEDS ORDERED: PYRIDIUM 200 MG ONE (19:01)
[2022-01-12] MEDS ORDERED: Cipro 500 MG ONE (19:01)
== END 2022-01-12 19:39 | disposition home or self-care (01) ==
LOC: ED 17:31
DX: N39.0 Urinary tract infection, site not specified (principal); R30.0 Dysuria; Z79.899 Other long term (current) drug therapy
CPT/HCPCS: 81015; 99283; A9270-GY

== ENCOUNTER 2022-12-07 17:06 | Emergency (ER) | payer MEDICARE, OTHER ==
--- NOTE | 2022-12-07 17:22 | ERPHSYRPT ---
- History of Present Illness Time Seen by Provider: 12/07/22 17:22 Source: patient, family Exam Limitations: no limitations Physician History: This is a 77-year-old white female is been fighting recurrent urinary tract infections since approximately 11/21/2022. She is here today after taking one of her new antibiotics Cipro 500 mg orally this morning. She has no chest pain. She denies shortness of breath. She has no abdominal pain. She is concerned about having sepsis. She has not had a fever. She has flulike symptoms. These are symptoms she gets when she has a urinary tract infection. She denies nausea vomiting or diarrhea. Patient does have pelvic discomfort with urination. She has no abnormal vaginal discharge. Timing/Duration: today Activites at Onset: none Severity of Pain-Max: none Severity of Pain-Current: none Sexual intercourse history: non-contributory Modifying Factors: Improves With: nothing Associated Symptoms: No abdominal pain, No nausea, No vomiting Allergies/Adverse Reactions: Penicillins Allergy (Verified 12/07/22 17:27) Sulfa (Sulfonamide Antibiotics) Allergy (Verified 12/07/22 17:27) Home Medications: Irbesartan 75 mg PO DAILY 12/17/18 [History] Multivit-Min/Iron/Folic/Lutein [Centrum Silver Women Tablet] 1 each PO DAILY 12/17/18 [History] Lorazepam 1 mg [Ativan 1 MG] 0.5 mg PO HS PRN 01/05/21 [History] Levothyroxine Sodium 50 Mcg [Synthroid 50 Mcg] 75 mcg PO DAILY 01/12/22 [History] Hx Tetanus, Diphtheria Vaccination/Date Given: No Hx Influenza Vaccination/Date Given: Yes Hx Pneumococcal Vaccination/Date Given: Yes Travel Risk - International Travel Have you traveled outside of the country in past 3 weeks: No - Coronavirus Screening Are you exhibiting any of the following symptoms?: No Close contact with a COVID-19 positive Pt in past 14-21 Days: No - Vaccine Status Have you recieved a Covid-19 vaccination: 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 Dates if Unknown: ? - Review of Systems Constitutional: No Symptoms Eyes: No Symptoms Ears, Nose, & Throat: No Symptoms Respiratory: No Symptoms Cardiac: No Symptoms Abdominal/Gastrointestinal: No Symptoms Genitourinary Symptoms: Other (Pelvic discomfort) Musculoskeletal: No Symptoms - Past Medical History Pertinent Past Medical History: Yes Neurological History: No Pertinent History ENT History: Cataracts Cardiac History: No Pertinent History Respiratory History: No Pertinent History Endocrine Medical History: Hypothyroidism Musculoskeletal History: Osteoarthritis GI Medical History: Hernia History: No Pertinent History Psycho-Social History: Anxiety Female Reproductive Disorders: No Pertinent History Other Medical History: PATIENT HAS AN MRI THAT POSSIBLY SHOWED SOMETHING ON THE BRAIN, AND SHE WAS REFERRED TO A NEUROLOGIST, HE STATED THERE WASN'T ANYTHING SIGNIFICANT. 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 L TKA IN 2018. - Past Surgical History Past Surgical History: Yes Neuro Surgical History: No Pertinent History Cardiac: No Pertinent History Respiratory: No Pertinent History Gastrointestinal: Hernia Repair Genitourinary: No Pertinent History Musculoskeletal: Joint Replacement Female Surgical History: Hysterectomy Other Surgical History: LEFT KNEE REPLACEMENT - Social History Smoking Status: Never smoker Exposure to second hand smoke: No Drug Use: none Patient Lives Alone: Yes - Nursing Vital Signs Nursing Vital Signs: Initial Vital Signs Temperature 98.3 F 12/07/22 17:30 Pulse Rate 88 12/07/22 17:30 Respiratory Rate 18 12/07/22 17:30 Blood Pressure 142/71 12/07/22 17:30 O2 Sat by Pulse Oximetry 98 12/07/22 17:30 Pain Scale Pain Intensity 5 - Physical Exam General Appearance: no apparent distress, alert, anxiety Eye Exam: PERRL/EOMI, eyes nml inspection Ears, Nose, Throat Exam: normal ENT inspection, moist mucous membranes Neck Exam: normal inspection, non-tender, supple, full range of motion Respiratory Exam: normal breath sounds, lungs clear, airway intact, No chest tenderness, No respiratory distress Cardiovascular Exam: regular rate/rhythm, normal heart sounds, normal peripheral pulses Gastrointestinal/Abdomen Exam: soft, normal bowel sounds, No tenderness Pelvic Exam: not done Rectal Exam: not done Back Exam: normal inspection, normal range of motion, No CVA tenderness, No vertebral tenderness Extremity Exam: normal inspection, normal range of motion, pelvis stable Neurologic Exam: alert, oriented x 3, cooperative, gravity prospecting operator II-XII nml as tested, normal mood/affect, nml cerebellar function, nml station & gait, sensation nml Skin Exam: normal color, warm, dry Lymphatic Exam: No adenopathy SpO2 Interpretation: normal O2 Delivery: Room Air - Course Nursing assessment & vital signs reviewed: Yes Ordered Tests: Active Orders 24 hr Category Date Time Status IV Insertion STAT Care 12/07/22 17:51 Active cath [Cath for Specimen-Straight] STAT Care 12/07/22 17:24 Active BMP Stat Lab 12/07/22 18:01 Completed CBC W DIFF Stat Lab 12/07/22 18:01 Completed CULTURE,URINE Stat Lab 12/07/22 17:25 Received Lactic Acid Stat Lab 12/07/22 18:35 Completed UA W/RFX UR CULTURE Stat Lab 12/07/22 17:25 Completed Medication Summary Discontinued Medications Generic Name Dose Route Start Last Admin Trade Name Freq PRN Reason Stop Dose Admin Sodium Chloride 1,000 mls @ 999 mls/hr 12/07/22 17:51 12/07/22 19:02 Sodium Chloride 0.9% 1000 Ml IV 12/07/22 18:51 Infused .Q1H1M STA Infusion Levofloxacin/Dextrose 500 mg in 100 mls @ 100 mls/hr 12/07/22 17:52 12/07/22 18:20 Levofloxacin 500mg/100ml D5w IV 12/07/22 18:51 Infused STAT STA Infusion Sodium Chloride Confirm 12/07/22 17:58 Sodium Chloride 0.9% 1000 Ml Administered 12/07/22 17:59 Dose 1,000 mls @ ud .ROUTE .STK-MED ONE Levofloxacin/Dextrose Confirm 12/07/22 17:58 Levofloxacin 500mg/100ml D5w Administered 12/07/22 17:59 Dose 500 mg in 100 mls @ ud IV .STK-MED ONE Lab/Rad Data: Laboratory Result Diagrams 12/07/22 18:01 12/07/22 18:01 Laboratory Results 12/07/22 12/07/22 12/07/22 Range/Units 18:35 18:01 18:01 WBC (4.0-10.5) x10^3/uL RBC (4.1-5.4) x10^6/uL Hgb (12.0-16.0) g/dL Hct (35-47) % MCV (78-100) fL MCH (26-32) pg MCHC (32-36) g/dL RDW (11.5-14.0) % Plt Count (150-450) x10^3/uL MPV (7.5-11.0) fL Gran % (36.0-66.0) % Immature Gran % (Auto) (0.00-0.4) % Nucleat RBC Rel Count (0.00-0.1) % Eos # (Auto) (0-0.5) x10^3/uL Immature Gran # (Auto) (0.00-0.03) x10^3u/L Absolute Lymphs (auto) (1.0-4.6) x10^3/uL Absolute Monos (auto) (0.0-1.3) x10^3/uL Absolute Nucleated RBC (0.00-0.01) x10^3u/L Lymphocytes % (24.0-44.0) % Monocytes % (0.0-12.0) % Eosinophils % (0.00-5.0) % Basophils % (0.0-0.4) % Absolute Granulocytes (1.4-6.9) x10^3/uL Basophils # (0-0.4) x10^3/uL Sodium 141 (137-145) mmol/L Potassium 4.2 (3.5-5.1) mmol/L Chloride 105 (98-107) mmol/L Carbon Dioxide 25 (22-30) mmol/L Anion Gap 16.1 H (5-15) MEQ/L BUN 17 (7-17) mg/dL Creatinine 0.83 (0.52-1.04) mg/dL Estimated GFR > 60.0 ML/MIN Glucose 106 (74-106) mg/dL Lactic Acid 0.8 (0.4-2.0) Calcium 9.2 (8.4-10.2) mg/dL Urine Color (Yellow) Urine Appearance (Clear) Urine pH (4.6-8.0) Ur Specific [place] (1.005-1.030) Urine Protein (Negative) Urine Glucose (UA) (Negative) mg/dL Urine Ketones (Negative) Urine Blood (Negative) Urine Nitrite (Negative) Urine Bilirubin (Negative) Urine Urobilinogen (0.2) mg/dL Ur Leukocyte Esterase (Negative) U Hyaline Cast (Auto) (0-2) /LPF Urine Microscopic RBC (0-5) /HPF Urine Microscopic WBC (0-5) /HPF Ur Epithelial Cells (None Seen) /HPF Urine Bacteria (None Seen) /HPF Urine Culture Reflexed (NO) Influenza Type A Ag NEGATIVE (NEGATIVE) Influenza Type B Ag NEGATIVE (NEGATIVE) RSV (PCR) NEGATIVE (NEGATIVE) SARS-CoV-2 (PCR) NEGATIVE (NEGATIVE) 12/07/22 12/07/22 Range/Units 18:01 17:25 WBC 6.2 (4.0-10.5) x10^3/uL RBC 4.37 (4.1-5.4) x10^6/uL Hgb 13.8 (12.0-16.0) g/dL Hct 42.8 (35-47) % MCV 97.9 (78-100) fL MCH 31.6 (26-32) pg MCHC 32.2 (32-36) g/dL RDW 13.2 (11.5-14.0) % Plt Count 261 (150-450) x10^3/uL MPV 11.0 (7.5-11.0) fL Gran % 66.4 H (36.0-66.0) % Immature Gran % (Auto) 0.2 (0.00-0.4) % Nucleat RBC Rel Count 0.0 (0.00-0.1) % Eos # (Auto) 0.14 (0-0.5) x10^3/uL Immature Gran # (Auto) 0.01 (0.00-0.03) x10^3u/L Absolute Lymphs (auto) 1.15 (1.0-4.6) x10^3/uL Absolute Monos (auto) 0.73 (0.0-1.3) x10^3/uL Absolute Nucleated RBC 0.00 (0.00-0.01) x10^3u/L Lymphocytes % 18.7 L (24.0-44.0) % Monocytes % 11.9 (0.0-12.0) % Eosinophils % 2.3 (0.00-5.0) % Basophils % 0.5 (0.0-0.4) % Absolute Granulocytes 4.09 (1.4-6.9) x10^3/uL Basophils # 0.03 (0-0.4) x10^3/uL Sodium (137-145) mmol/L Potassium (3.5-5.1) mmol/L Chloride (98-107) mmol/L Carbon Dioxide (22-30) mmol/L Anion Gap (5-15) MEQ/L BUN (7-17) mg/dL Creatinine (0.52-1.04) mg/dL Estimated GFR ML/MIN Glucose (74-106) mg/dL Lactic Acid (0.4-2.0) Calcium (8.4-10.2) mg/dL Urine Color Yellow (Yellow) Urine Appearance Clear (Clear) Urine pH 7.5 (4.6-8.0) Ur Specific [place] 1.010 (1.005-1.030) Urine Protein Negative (Negative) Urine Glucose (UA) Negative (Negative) mg/dL Urine Ketones Negative (Negative) Urine Blood Negative (Negative) Urine Nitrite Negative (Negative) Urine Bilirubin Negative (Negative) Urine Urobilinogen 0.2 (0.2) mg/dL Ur Leukocyte Esterase Negative (Negative) U Hyaline Cast (Auto) NONE SEEN (0-2) /LPF Urine Microscopic RBC 0-2 (0-5) /HPF Urine Microscopic WBC 0-2 (0-5) /HPF Ur Epithelial Cells None Seen (None Seen) /HPF Urine Bacteria None Seen (None Seen) /HPF Urine Culture Reflexed NO (NO) Influenza Type A Ag (NEGATIVE) Influenza Type B Ag (NEGATIVE) RSV (PCR) (NEGATIVE) SARS-CoV-2 (PCR) (NEGATIVE) - Progress Progress: improved, re-examined Air Movement: good Progress Note: 12/07/22 17:50 This patient's medical issue is low to moderate complexity. The level of complexity in the work-up performed based on review of the patient's past medical history, review of the patient's medication list, review the patient's drug allergy list, history present illness and physical findings on examination. Work-up includes placement of intravenous line, infusion 1 L of normal saline solution, infusion of Levaquin 500 mg intravenously, lactic acid level, CBC and BMP. We will also draw COVID swabs. 12/07/22 19:02 I reviewed the results of the work-up. Patient's lactic acid is normal. She has a normal white count. Her electrolyte and kidney function are normal. Her flu swab studies are also normal. Patient is not septic. After infusion of the liter of normal saline solution, the patient states she is feeling better. She will restart her Cipro 500 mg orally on the evening of 12/08/2022. She is to call her primary care provider on 12/09/2022 for further evaluation management. Blood Culture(s) Obtained: Yes Antibiotics given: Yes Counseled pt/family regarding: lab results, diagnosis, need for follow-up Medical Desision Making - Independent Historian Additional History obtained from: Child - Diagnostic Testing Diagnostic test were ordered, analyzed, and reviewed by me: Yes - Risk of complications Low Risk: Low risk of morbidity from additional dx testing or treatment - Departure Departure Disposition: Home Clinical Impression: Arthralgia, Myalgia, Flu-like symptoms Condition: Stable Critical Care Time: No Referrals: NIKHIL COWAN NP [Primary Care Provider] - Follow up/PCP as directed Additional Instructions: Continue your antibiotics as prescribed beginning the evening of 12/08/2022. Drink plenty of fluids. Take your other medication as prescribed. Call your prescribing provider on 12/10/2019 3 in the morning to make arranges for further evaluation and management.
[2022-12-07 17:34] LABS: Appearance Clear (Clear); Bacteria None Seen /HPF (None Seen); Bilirubin Negative (Negative); Blood Negative (Negative); Epithelial Cells None Seen /HPF (None Seen); Glucose, Urine Negative (Negative); Hyaline Casts NONE SEEN /LPF (0-2); Ketones Negative (Negative); Leukocyte Esterase Negative (Negative); Nitrite Negative (Negative); Ph 7.5 (4.6-8.0); Protein,Urine Dip Negative (Negative); RBC 0-2 /HPF (0-5); Urobilinogen 0.2 mg/dL (0.2); WBC 0-2 /HPF (0-5)
[2022-12-07 17:36] VITALS: RESP 18; TEMP 98.3
[2022-12-07 17:43] LABS: ADD URINE CULTURE? NO (NO)
[2022-12-07] MEDS ORDERED: Sodium Chloride 0.9% 1000 ML 1,000 ML IV STA (17:51)
[2022-12-07] MEDS ORDERED: Levofloxacin 500MG/100ML D5W 500 MG/100 ML BAG IV STA (17:52)
[2022-12-07] MEDS ORDERED: Sodium Chloride 0.9% 1000 ML 1,000 ML ONE (17:58)
[2022-12-07] MEDS ORDERED: Levofloxacin 500MG/100ML D5W 500 MG/100 ML BAG IV ONE (17:58)
[2022-12-07 18:05] LABS: Absolute Neutrophil Ct (ANC) 4.09 x10^3/uL (1.4-6.9); BASOPHIL % 0.5 % (0.0-0.4); Basophil (Absolute #) 0.03 x10^3/uL (0-0.4); Eosinophil % 2.3 % (0.00-5.0); Eosinophil (Absolute #) 0.14 x10^3/uL (0-0.5); Hematocrit 42.8 % (35-47); Hemoglobin 13.8 g/dL (12.0-16.0); IMMATURE GRAN # 0.01 x10^3u/L (0.00-0.03); IMMATURE GRAN % 0.2 % (0.00-0.4); Lymphocyte (Absolute #) 1.15 x10^3/uL (1.0-4.6); Lymphocytes % 18.7 % (24.0-44.0); Mean Cell Volume 97.9 fL (78-100); Mean Corpuscular Hemoglobin 31.6 pg (26-32); Mean Corpuscular Hgb Concent. 32.2 g/dL (32-36); Monocyte (Absolute #) 0.73 x10^3/uL (0.0-1.3); Monocytes % 11.9 % (0.0-12.0); Neutrophil % 66.4 % (36.0-66.0); Platelet Count 261 x10^3/uL (150-450); Red Blood Count 4.37 x10^6/uL (4.1-5.4); Red Cell Distribution Width 13.2 % (11.5-14.0); White Blood Count 6.2 x10^3/uL (4.0-10.5)
[2022-12-07 18:16] LABS: ANION GAP 16.1 MEQ/L (5-15); BLOOD UREA NITROGEN 17 mg/dL (7-17); CHLORIDE 105 mmol/L (98-107); Calcium 9.2 mg/dL (8.4-10.2); Carbon Dioxide 25 mmol/L (22-30); Creatinine 1 0.83 mg/dL (0.52-1.04); EST GLOMERULAR FILTRATION RATE > 60.0 ML/MIN; Glucose 106 mg/dL (74-106); Potassium 4.2 mmol/L (3.5-5.1); SODIUM 141 mmol/L (137-145)
[2022-12-07 18:41] LABS: INFLUENZA A NEGATIVE (NEGATIVE); INFLUENZA B NEGATIVE (NEGATIVE); RESPIRATORY SYNCTIAL VIRUS NEGATIVE (NEGATIVE); SARS-CoV-2 Xpert Express NEGATIVE (NEGATIVE)
[2022-12-07 19:30] VITALS: BP 172/76; PULSE 85; O2SAT 99
== END 2022-12-07 19:29 | disposition home or self-care (01) ==
LOC: ED 17:06
DX: M25.50 Pain in unspecified joint (principal); M79.10 Myalgia, unspecified site; R30.9 Painful micturition, unspecified; Z79.899 Other long term (current) drug therapy; Z20.828 Contact with and (suspected) exposure to other viral communicable diseases
CPT/HCPCS: 0241U; 36000; 36415; 80048; 81001; 83605; 85025; 87086; 96360; 96365; 99284; P9612; J1956

== ENCOUNTER 2023-11-17 16:31 | Emergency (ER) | payer MEDICARE, OTHER ==
[2023-11-17 17:07] LABS: Appearance Clear (Clear); Bacteria None Seen /HPF (None Seen); Bilirubin Negative (Negative); Blood Negative (Negative); Epithelial Cells None Seen /HPF (None Seen); Glucose, Urine Negative (Negative); Hyaline Casts NONE SEEN /LPF (0-2); Ketones Negative (Negative); Leukocyte Esterase Negative (Negative); Nitrite Negative (Negative); Ph 6.5 (4.6-8.0); Protein,Urine Dip Negative (Negative); RBC 0-2 /HPF (0-5); Urobilinogen 0.2 mg/dL (0.2); WBC 0-2 /HPF (0-5)
[2023-11-17 17:11] LABS: ADD URINE CULTURE? NO (NO)
--- NOTE | 2023-11-17 17:43 | ERPHSYRPT ---
- History of Present Illness Time Seen by Provider: 11/17/23 17:43 Source: patient Exam Limitations: no limitations Physician History: Patient is a 78-year-old white female patient of nurse practitioner August who for several days has had intermittent pelvic pain and urinary frequency. She has been doing physical therapy which helps with the pain control. Of concern was the urinary frequency. She has had this in the past and the patient frequently has a urinary tract infection. Patient did not fall or suffer any acute traumatic injury. Patient has a history anxiety, hypertension, hypothyroidism and osteoarthritis. Patient denies chest pain. Patient denies s hortness of breath. Patient only wants Tylenol and ibuprofen. She does not want any narcotic medication. Timing/Duration: day(s) (Intermittently for several days), worse Activites at Onset: physical activity Onset Location: pelvic pain Pain Radiation: none Severity of Pain-Max: mild (Moderate) Severity of Pain-Current: mild (To moderate) Sexual intercourse history: non-contributory Modifying Factors: Improves With: palpation, walking Associated Symptoms: urinary frequency Allergies/Adverse Reactions: Penicillins Allergy (Verified 11/17/23 17:59) Sulfa (Sulfonamide Antibiotics) Allergy (Verified 11/17/23 17:59) Home Medications: Irbesartan 75 mg PO DAILY 12/17/18 [History] Multivit-Min/Iron/Folic/Lutein [Centrum Silver Women Tablet] 1 each PO DAILY 12/17/18 [History] Lorazepam 1 mg [Ativan 1 MG] 0.5 mg PO HS PRN 01/05/21 [History] Levothyroxine Sodium 50 Mcg [Synthroid 50 Mcg] 75 mcg PO DAILY 01/12/22 [History] Hx Tetanus, Diphtheria Vaccination/Date Given: No Hx Influenza Vaccination/Date Given: Yes Hx Pneumococcal Vaccination/Date Given: Yes Travel Risk - International Travel Have you traveled outside of the country in past 3 weeks: No - Emerging Infectious Disease Are you exhibiting symptoms associated with any current EIDs: No - Review of Systems Constitutional: No Symptoms Eyes: No Symptoms Ears, Nose, & Throat: No Symptoms Respiratory: No Symptoms Cardiac: No Symptoms Abdominal/Gastrointestinal: No Symptoms Genitourinary Symptoms: No Symptoms Musculoskeletal: Other (Tender suprapubic and pubic symphysis area to palpation.) Skin: No Symptoms Neurological: No Symptoms Psychological: No Symptoms Endocrine: No Symptoms Hematologic/Lymphatic: No Symptoms Immunological/Allergic: No Symptoms All Other Systems: Reviewed and Negative - Past Medical History Pertinent Past Medical History: Yes Neurological History: No Pertinent History ENT History: Cataracts Cardiac History: No Pertinent History Respiratory History: No Pertinent History Endocrine Medical History: Hypothyroidism Musculoskeletal History: Osteoarthritis GI Medical History: Hernia History: No Pertinent History Psycho-Social History: Anxiety Female Reproductive Disorders: No Pertinent History Other Medical History: PATIENT HAS AN MRI THAT POSSIBLY SHOWED SOMETHING ON THE BRAIN, AND SHE WAS REFERRED TO A NEUROLOGIST, HE STATED THERE WASN'T ANYTHING SIGNIFICANT. 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 L TKA IN 2018. - Past Surgical History Past Surgical History: Yes Neuro Surgical History: No Pertinent History Cardiac: No Pertinent History Respiratory: No Pertinent History Gastrointestinal: Hernia Repair Genitourinary: No Pertinent History Musculoskeletal: Joint Replacement Female Surgical History: Hysterectomy Other Surgical History: LEFT KNEE REPLACEMENT - Social History Smoking Status: Never smoker Exposure to second hand smoke: No Drug Use: none Patient Lives Alone: Yes - Nursing Vital Signs Nursing Vital Signs: Initial Vital Signs Pulse Rate 88 11/17/23 17:45 Respiratory Rate 18 11/17/23 17:45 Blood Pressure 191/91 11/17/23 17:45 O2 Sat by Pulse Oximetry 98 11/17/23 17:45 Pain Scale Pain Intensity 6 - Physical Exam General Appearance: no apparent distress, alert Eye Exam: PERRL/EOMI, eyes nml inspection Ears, Nose, Throat Exam: normal ENT inspection, moist mucous membranes Neck Exam: normal inspection, non-tender, supple, full range of motion Respiratory Exam: airway intact, No chest tenderness, No respiratory distress Gastrointestinal/Abdomen Exam: soft, normal bowel sounds, tenderness (Mild tenderness to palpation suprapubic and pubic symphysis midline) Pelvic Exam: not done Rectal Exam: not done Back Exam: normal inspection, normal range of motion, No CVA tenderness, No vertebral tenderness Extremity Exam: normal inspection, normal range of motion, pelvis stable Neurologic Exam: alert, oriented x 3, cooperative, statistician mathematical II-XII nml as tested, sensation nml Skin Exam: normal color, warm, dry Lymphatic Exam: No adenopathy SpO2 Interpretation: normal O2 Delivery: Room Air - Course Nursing assessment & vital signs reviewed: Yes Ordered Tests: Active Orders 24 hr Category Date Time Status PELVIS WITHOUT CONTRAST [CT] Stat Exams 11/17/23 18:33 Taken UA W/RFX UR CULTURE Stat Lab 11/17/23 17:01 Completed Medication Summary Discontinued Medications Generic Name Dose Route Start Last Admin Trade Name Екатерина PRN Reason Stop Dose Admin Acetaminophen 650 mg 11/17/23 19:37 11/17/23 19:47 Acetaminophen 325 Mg Tablet PO 11/17/23 19:38 650 mg STAT ONE Administration Acetaminophen Confirm 11/17/23 19:45 Acetaminophen 325 Mg Tablet Administered 11/17/23 19:46 Dose 650 mg .ROUTE .STK-MED ONE Ibuprofen 400 mg 11/17/23 19:37 11/17/23 19:47 Ibuprofen 400 Mg Tablet PO 11/17/23 19:38 400 mg STAT ONE Administration Ibuprofen Confirm 11/17/23 19:44 Ibuprofen 400 Mg Tablet Administered 11/17/23 19:45 Dose 400 mg .ROUTE .STK-MED ONE Irbesartan 75 mg 11/17/23 19:38 11/17/23 19:52 Irbesartan 150 Mg Tablet PO 11/17/23 19:39 75 mg STAT ONE Administration Lab/Rad Data: Laboratory Results 11/17/23 Range/Units 17:01 Urine Color Yellow (Yellow) Urine Appearance Clear (Clear) Urine pH 6.5 (4.6-8.0) Ur Specific [place] 1.010 (1.005-1.030) Urine Protein Negative (Negative) Urine Glucose (UA) Negative (Negative) mg/dL Urine Ketones Negative (Negative) Urine Blood Negative (Negative) Urine Nitrite Negative (Negative) Urine Bilirubin Negative (Negative) Urine Urobilinogen 0.2 (0.2) mg/dL Ur Leukocyte Esterase Negative (Negative) U Hyaline Cast (Auto) NONE SEEN (0-2) /LPF Urine Microscopic RBC 0-2 (0-5) /HPF Urine Microscopic WBC 0-2 (0-5) /HPF Ur Epithelial Cells None Seen (None Seen) /HPF Urine Bacteria None Seen (None Seen) /HPF Urine Culture Reflexed NO (NO) - Progress Progress: improved, re-examined Air Movement: good Progress Note: 11/17/23 20:18 My medical decision making and the assignment of low to moderate complexity on t his patient's medical issue today is based on review of the patient's past medical history, review of the patient's medication list, review the patient drug allergy list, history of present illness and physical findings on examination. Workup in this patient includes urinalysis and pelvic CT scan without contrast. I interpreted the patient's urinalysis. She does not have a urinary tract infection. Therefore, we opted to perform a pelvic CT scan without contrast. The patient does not have any mid to upper abdominal pain or discomfort at all. The CT scan of the pelvis without contrast was interpreted by radiologist and I reviewed the impression. The impression states diverticulosis without diverticulitis. Osteopenia. Moderate multilevel degenerative spondylosis. There is grade 1 L3 listhesis. Mild bilateral hip DJD. Remaining pelvis CT is negative Medical Desision Making - Independent Historian Additional History obtained from: Family - Diagnostic Testing Diagnostic test were ordered, analyzed, and reviewed by me: Yes Radiological Interpretation: Reviewed by me, Teleradiologist Report - Risk of complications Low Risk: Low risk of morbidity from additional dx testing or treatment - Departure Departure Disposition: Home Clinical Impression: Urinary frequency, Pelvic pain in female Condition: Stable Critical Care Time: No Referrals: NIKHIL COWAN NP [Primary Care Provider] - Follow up/PCP as directed Additional Instructions: Take all your medications as prescribed. Call your primary care provider tomorrow morning, 11/18/2023, to make a referral to be evaluated by urologist to assess urinary frequency and pelvic pain.
[2023-11-17 17:58] VITALS: TEMP 98.4
[2023-11-17 19:34] VITALS: O2SAT 97
[2023-11-17] MEDS ORDERED: MOTRIN 400 MG ONE (19:44)
[2023-11-17] MEDS ORDERED: TYLENOL 325 MG ONE (19:45)
[2023-11-17] MEDS: MOTRIN 400 MG PO ONE (19:47)
[2023-11-17] MEDS: TYLENOL 325 MG PO ONE (19:47)
[2023-11-17] MEDS: Avapro 150 MG PO ONE (19:52)
[2023-11-17 20:39] VITALS: BP 171/102; PULSE 96; RESP 16
--- NOTE | 2023-11-18 08:38 | XRAY ---
Indication: Urinary frequency. Pelvic pain. UTI. Multiple contiguous images obtained through the pelvis only without contrast as ordered. Comparison: None Visualized noncontrasted bowel loops appear nonobstructed with scattered colonic diverticulosis. Previous hysterectomy. No free fluid/air. Incidental tiny punctate gallstone. Remaining visualized liver, kidneys, ureters, and bladder are unremarkable for noncontrast exam. Minimal aortoiliac calcifications without AAA. Osseous structures intact with osteopenia, moderate multilevel lumbar degenerative spondylosis, grade 1 L3 anterolisthesis, and mild degenerative changes both hips. No ventral or inguinal hernias. Impression: 1. Punctate gallstone, colonic diverticulosis, arteriosclerotic disease, and chronic bony findings. 2. Remaining CT pelvis without contrast exam is negative.
== END 2023-11-17 20:39 | disposition home or self-care (01) ==
LOC: ED 16:31
DX: R35.0 Frequency of micturition (principal); R10.2 Pelvic and perineal pain; I10 Essential (primary) hypertension; Z79.899 Other long term (current) drug therapy
CPT/HCPCS: 72192; 81001; 99284; A9270-GY